=== PATIENT | female | born 1935 | race Caucasian/White ===

== ENCOUNTER 2016-12-20 12:32 | Observation (INO) | payer MEDICARE, OTHER ==
[2016-12-20] MEDS ORDERED: NS 0.9% 1000 ML* 1,000 ML IV ONE (13:10)
[2016-12-20 13:59] LABS: Hematocrit 38 % (35-47); Hemoglobin 12.6 g/dl (12.0-16.0); Mean Corpuscular HGB Conc 33 g/dl (31-36); Mean Corpuscular Hemoglobin 31 pg (27-31); Mean Corpuscular Volume 92 fL (80-97); Mean Platelet Volume 7 um3 (7.4-10.4); Red Cell Distribution Width 15 % (10.5-15); White Blood Count 4.2 10^3/ul (3.5-10.8)
--- NOTE | 2016-12-20 13:59 | RAD ---
HISTORY: Altered mental status COMPARISONS: July 03, 2016 VIEWS:1: Single frontal portable view of the chest at 1:54 PM FINDINGS: LINES AND TUBES: None. CARDIOMEDIASTINAL SILHOUETTE: The cardiomediastinal silhouette is normal for portable technique. PLEURA: The costophrenic angles are sharp. No pleural abnormalities are noted. LUNG PARENCHYMA: There is hyperinflation. ABDOMEN: The upper abdomen is clear. There is no subphrenic gas. BONES AND SOFT TISSUES: No bone or soft tissue abnormalities are noted. IMPRESSION: HYPERINFLATION. NO ACTIVE CARDIOPULMONARY DISEASE.
[2016-12-20 14:03] LABS: Urine Bacteria 1+ (Absent); Urine Bilirubin Negative (Negative); Urine Glucose Negative (Negative); Urine Nitrite Positive (Negative)
[2016-12-20 14:16] LABS: ALT 8 U/L (7-52); Alkaline Phosphatase 75 U/L (34-104); Blood Urea Nitrogen 22 mg/dL (6-24); CO2 Carbon Dioxide 28 mmol/L (22-32); Calcium 9.1 mg/dL (8.6-10.3); Chloride 105 mmol/L (101-111); Creatine Kinase 56 U/L (10-223); EGFR African American 152.3 (>60); EGFR Non-African American 118.4 (>60); Globulin 2.7 g/dL (2-4); Glucose 86 mg/dL (70-100); Sodium 138 mmol/L (133-145); Total Protein 6.7 g/dL (6.4-8.9)
[2016-12-20 14:19] LABS: AST 17 U/L (13-39); Anion Gap 5 mmol/L (2-11)
[2016-12-20 14:24] LABS: Acetaminophen < 15 mcg/mL; Salicylate < 2.50 mg/dL (<30)
--- NOTE | 2016-12-20 14:34 | CONS ---
CC: Dr. Parul Peter * CARDIOLOGY EVALUATION: DATE OF CONSULT: 12/20/16 REASON FOR EVALUATION: Weakness, dizziness. HISTORY OF PRESENT ILLNESS: This is an 81-year-old woman accompanied by her for stress testing. I saw her first on December 16 for evaluation of weakness and orthostatic lightheadedness. At that time, she had a low resting heart rate, intermittent right bundle and was thought that perhaps her symptoms were related to orthostatic lightheadedness and bradycardia. I asked her to cut her atenolol from 25 mg twice a day to 25 mg in the morning and 12.5 in the evening and she was supposed to follow up for evaluation with Holter, echo and stress testing to evaluate for structural heart disease. She also was found to have a soft systolic murmur 2/6 at the base and a soft holosystolic murmur at the apex. She arrived today for stress testing, was somewhat reluctant to proceed with the stress testing. She understands why it was being ordered and we explained the rationale for the testing and reminded her of her complaints. After further evaluation and trying to get a consent, she tried to sign the consent with her finger and she reported that she has been having some hallucinations. We brought the back in the room and reviewed all these symptoms. He said that she had hallucinations about a year ago, was evaluated and seemed to get better. She has also had recurrent chronic UTIs and has a pending evaluation with Dr. Hernandez. She denies fevers, but does say she has had some dysuria and it is difficult to quantitating the time. She denies orthopnea or chest pain and no syncope. She thinks she continues to have some mild orthostatic lightheadedness when getting up from sitting or standing. PHYSICAL EXAM: She is a well-developed, well-nourished female, appearing calm. Blood pressure 169/87, pulse 55, no significant JVD. Cardiac Exam: S1, S2 with 2/6 systolic ejection murmur at the base and 1-2/6 holosystolic murmur at the apex. Chest: Clear. Extremities: No edema. Abdomen: Bowel sounds present, nontender. DIAGNOSTIC STUDIES/LAB DATA: EKG sinus rhythm with incomplete right bundle branch block on the stress leads, possible lateral infarct similar to the previous EKG of December 16. I will encounter clockwise rotation similar to the previous EKG December 16. She knew the year, but did not know the month or the date. She knew where she was and she recognized me. IMPRESSION: My impression is that Ms. Sloan appears to have weakness, orthostatic lightheadedness, bradycardia and recent confusion, dysuria, disorientation of unclear etiology. I discussed this with her , the was not sure about the onset of her symptoms, but thought they are relatively recent although she has had waxing and waning levels of memory problems in the past. She also had recurrent UTIs. The nurses in the radiographer cardiac catheterization spoke to Dr. Peter who reported that this confusion was new compared to a baseline and to my recollection, this is new compared to my evaluation earlier this week. Therefore, we have recommended the followin. I suggest that she go to the emergency room for further evaluation especially in light of the dysuria and possibly infection. 2. We will cancel the stress test for now and consider repeat evaluation as an outpatient. 3. She was reminded of the need to cut her atenolol from 25 mg b.i.d. to 25 mg in the morning and 12.5 in the evening. Further recommendation will depend on her clinical course. The case was reviewed with Dr. Chahal in the emergency room. TIME SPENT: Over half of the 25 minutes spent with the patient and her and nurses and Dr. Chahal, was in evaluation of her medical presentation and coordination of care. [id number]/[facility] #: [id number] MTDD
--- NOTE | 2016-12-20 14:50 | RAD ---
HISTORY: Altered mental status COMPARISONS: April 02, 2016 TECHNIQUE: Multiple contiguous axial CT scans were obtained of the head without intravenous contrast. FINDINGS: HEMORRHAGE/INFARCT: There is no hemorrhage or acute infarct. MASSES/SHIFT: There is no mass or shift. EXTRA-AXIAL SPACES: There are no extra-axial fluid collections. SULCI AND VENTRICLES: The sulci and ventricles are normal in size and position for the patient's stated age. CEREBRUM: There are no focal parenchymal abnormalities. BRAINSTEM: There are no focal parenchymal abnormalities. CEREBELLUM: There are no focal parenchymal abnormalities. VESSELS: The vessels are grossly normal. PARANASAL SINUSES: The paranasal sinuses are clear. ORBITS: The orbits are unremarkable. BONES AND SOFT TISSUE: No bone or soft tissue abnormalities are noted. OTHER: None IMPRESSION: NO ACUTE INTRACRANIAL PATHOLOGY.
[2016-12-20 16:01] LABS: TSH (Thyroid Stimulating Horm) 0.47 mcIU/mL (0.34-5.60)
[2016-12-20] MEDS ORDERED: LORazepam TAB(*) 0.5 MG PO PRN (17:06)
[2016-12-20] MEDS ORDERED: NS 0.9% 1000 ML* 1,000 ML IV SCH (17:15)
--- NOTE | 2016-12-20 17:31 | ED ---
Donovan Brar Alfonso, scribed for Gauri Oliva MD on 12/20/16 at 1301 . Altered Mental Status - HPI Summary HPI Summary: This patient is an 81 year old female presenting [facility] accompanied by for altered mental status characterized as confusion since earlier today. She was at the cardiac lab earlier where she was scheduled for a stress test, and was referred to the ED. Reports "I was seeing and hearing things" such as other people and confusion. Denies any pain including CP, SOB, and fever. Sx aggravated and alleviated by nothing. Oriented to place, but not to time or person. PMHx of frequent UTIs. Denies recent falls and head trauma. - History Of Current Complaint Chief Complaint: EDAltMentalStatus Stated Complaint: AMS Hx Obtained From: Patient Timing: Constant, Lasting Hours - Earlier today at cardiac lab Severity Initially: Moderate Severity Currently: Moderate Character: Confusion Aggravating Factor(s): Nothing Alleviating Factor(s): Nothing Associated Signs And Symptoms: Negative: Recent Trauma Related History: Other: - frequent UTI's - Allergies/Home Medications Allergies/Adverse Reactions: Allergies Allergy/AdvReac Type Severity Reaction Status Date / Time Penicillins [PCN] Allergy Mild Hives Verified 10/21/14 13:58 Sulfa Drugs Allergy Mild Hives Verified 10/21/14 13:58 Doxycycline Allergy Unknown Unknown Verified 10/21/14 13:58 Reaction Details Ciprofloxacin [From Cipro] Allergy Itching Verified 10/21/14 13:58 Sulfamethoxazole Allergy Itching Verified 10/21/14 13:58 w/Trimethoprim [From Bactrim] Home Medications: Home Medications Acetaminophen [Acetaminophen Extra Stren] 500 mg PO Q4HR 12/20/16 [History Confirmed 12/20/16] PMH/Surg Hx/FS Hx/Imm Hx Previously Healthy: No Endocrine/Hematology History: Denies: Hx Diabetes, Hx Thyroid Disease Cardiovascular History: Reports: Hx Angina, Hx Hypertension Denies: Hx Coronary Artery Disease, Hx Hypercholesterolemia - borderline, Hx Myocardial Infarction, Hx Valvular Heart Disease Respiratory History: Denies: Hx Asthma, Hx Chronic Obstructive Pulmonary Disease (COPD) GI History: Reports: Hx Hiatal Hernia Denies: Hx Ulcer History: Reports: Hx Kidney Infection, Hx Kidney Stones - 2008, FOLLOWED BY DR DUFFY, Other Problems/Disorders - frequent UTI's Musculoskeletal History: 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 states no Psychiatric History: Reports: Hx Anxiety, Other Psychiatric Issues/Disorders - OF CHILD - Cancer History Hx Chemotherapy: No Hx Radiation Therapy: No - Surgical History Surgery Procedure, Year, and Place: Hysterectomy [place]. 1989 [facility] Right hip replacement [facility] [facility]. right knee repair [facility]. CATARACT RIGHT EYE 2012 [facility]. BLADDER SLING Hx Anesthesia Reactions: No - Immunization History Date of Tetanus Vaccine: unknown Infectious Disease History: No Infectious Disease History: Reports: Hx Shingles Denies: Hx Clostridium Difficile, Hx Hepatitis, Hx Human Immunodeficiency Virus (HIV), Hx Tuberculosis, Hx Known/Suspected VRE, Hx Known/Suspected VRSA, History Other Infectious Disease, Traveled Outside the in Last 30 Days - Family History Known Family History: Positive: Other - FHx breast cancer - Social History Alcohol Use: None Substance Use Type: Reports: None Hx Tobacco Use: No Smoking Status (MU): Never Smoked Tobacco Review of Systems Negative: Fever Negative: Chest Pain Negative: Shortness Of Breath Gastrointestinal: Negative Positive: frequency, urgency Negative: Arthralgia Neurological: Other - hallucinations, visual Psychological: Normal All Other Systems Reviewed And Are Negative: Yes Physical Exam - Summary Physical Exam Summary: Appearance: Ill-appearing, no pain distress, Well-nourished Eyes: Conjunctiva clear. Visual field intact by confrontation. ENT: Normal Neck: Supple Respiratory: Lungs clear, Normal breath sounds, no respiratory distress Cardio: RRR, No murmur, pulses normal, brisk capillary refill Abdomen: soft, nontender, negative splenomegaly, no bruits, non distended. Bowel sounds: present Musculoskeletal: Strength Intact, ROM intact. Moves all extremities. Neuro: Alert, muscle tone normal. No neurological focal deficits. Alert and oriented to place. Not oriented to time or person. CN II-XII intact Motor function 5/5 Sensations intact No hallucinations during my eval Psychological: Normal Skin: Normal Triage Information Reviewed: Yes Vital Signs On Initial Exam: Initial Vitals Temp Pulse Resp BP Pulse Ox 97.7 F 63 20 166/52 100 12/20/16 12:35 12/20/16 12:35 12/20/16 12:35 12/20/16 12:35 12/20/16 12:35 Vital Signs Reviewed: Yes - [place] Coma Scale Coma Scale Total: 15 Diagnostics - Vital Signs Vital Signs Temp Pulse Resp BP Pulse Ox 12/20/16 12:52 150/68 12/20/16 12:39 97.7 F 57 20 166/52 100 12/20/16 12:35 97.7 F 63 20 166/52 100 - Laboratory Lab Results: Lab Results 12/20/16 12/20/16 12/20/16 Range/Units 13:16 13:30 13:30 WBC 4.2 (3.5-10.8) 10^3/ul RBC 4.10 (4.0-5.4) 10^6/ul Hgb 12.6 (12.0-16.0) g/dl Hct 38 (35-47) % MCV 92 (80-97) fL MCH 31 (27-31) pg MCHC 33 (31-36) g/dl RDW 15 (10.5-15) % Plt Count 230 (150-450) 10^3/ul MPV 7 L (7.4-10.4) um3 Neut % (Auto) 63.3 (38-83) % Lymph % (Auto) 26.2 (25-47) % Harper % (Auto) 8.2 (1-9) % Eos % (Auto) 1.5 (0-6) % Baso % (Auto) 0.8 (0-2) % Absolute Neuts (auto) 2.7 (1.5-7.7) 10^3/ul Absolute Lymphs (auto) 1.1 (1.0-4.8) 10^3/ul Absolute Monos (auto) 0.3 (0-0.8) 10^3/ul Absolute Eos (auto) 0.1 (0-0.6) 10^3/ul Absolute Basos (auto) 0 (0-0.2) 10^3/ul Absolute Nucleated RBC 0 10^3/ul Nucleated RBC % 0.1 INR (Anticoag Therapy) (0.89-1.11) Sodium 138 (133-145) mmol/L Potassium 4.0 (3.5-5.0) mmol/L Chloride 105 (101-111) mmol/L Carbon Dioxide 28 (22-32) mmol/L Anion Gap 5 (2-11) mmol/L BUN 22 (6-24) mg/dL Creatinine 0.50 L (0.51-0.95) mg/dL Est GFR ( Amer) 152.3 (>60) Est GFR (Non-Af Amer) 118.4 (>60) BUN/Creatinine Ratio 44.0 H (8-20) Glucose 86 (70-100) mg/dL Lactic Acid (0.5-2.0) mmol/L Calcium 9.1 (8.6-10.3) mg/dL Magnesium 2.0 (1.9-2.7) mg/dL Total Bilirubin 0.80 (0.2-1.0) mg/dL AST 17 (13-39) U/L ALT 8 (7-52) U/L Alkaline Phosphatase 75 (34-104) U/L Ammonia (16-53) mol/L Total Creatine Kinase 56 (10-223) U/L Troponin I 0.00 (<0.04) ng/mL Total Protein 6.7 (6.4-8.9) g/dL Albumin 4.0 (3.2-5.2) g/dL Globulin 2.7 (2-4) g/dL Albumin/Globulin Ratio 1.5 (1-3) TSH 0.47 (0.34-5.60) mcIU/mL Urine Color Straw Urine Appearance Clear Urine pH 6.0 (5-9) Ur Specific [place] 1.006 L (1.010-1.030) Urine Protein Negative (Negative) Urine Ketones Negative (Negative) Urine Blood 1+ H (Negative) Urine Nitrate Positive H (Negative) Urine Bilirubin Negative (Negative) Urine Urobilinogen Negative (Negative) Ur Leukocyte Esterase 3+ H (Negative) Urine WBC (Auto) 2+(11-20/hpf) H (Absent) Urine RBC (Auto) Absent (Absent) Ur Squamous Epith Cells Present H (Absent) Urine Bacteria 1+ H (Absent) Urine Glucose Negative (Negative) Salicylates < 2.50 (<30) mg/dL Acetaminophen < 15 mcg/mL 12/20/16 12/20/16 12/20/16 Range/Units 13:30 13:30 13:30 WBC (3.5-10.8) 10^3/ul RBC (4.0-5.4) 10^6/ul Hgb (12.0-16.0) g/dl Hct (35-47) % MCV (80-97) fL MCH (27-31) pg MCHC (31-36) g/dl RDW (10.5-15) % Plt Count (150-450) 10^3/ul MPV (7.4-10.4) um3 Neut % (Auto) (38-83) % Lymph % (Auto) (25-47) % Harper % (Auto) (1-9) % Eos % (Auto) (0-6) % Baso % (Auto) (0-2) % Absolute Neuts (auto) (1.5-7.7) 10^3/ul Absolute Lymphs (auto) (1.0-4.8) 10^3/ul Absolute Monos (auto) (0-0.8) 10^3/ul Absolute Eos (auto) (0-0.6) 10^3/ul Absolute Basos (auto) (0-0.2) 10^3/ul Absolute Nucleated RBC 10^3/ul Nucleated RBC % INR (Anticoag Therapy) 0.96 (0.89-1.11) Sodium (133-145) mmol/L Potassium (3.5-5.0) mmol/L Chloride (101-111) mmol/L Carbon Dioxide (22-32) mmol/L Anion Gap (2-11) mmol/L BUN (6-24) mg/dL Creatinine (0.51-0.95) mg/dL Est GFR ( Amer) (>60) Est GFR (Non-Af Amer) (>60) BUN/Creatinine Ratio (8-20) Glucose (70-100) mg/dL Lactic Acid 1.0 (0.5-2.0) mmol/L Calcium (8.6-10.3) mg/dL Magnesium (1.9-2.7) mg/dL Total Bilirubin (0.2-1.0) mg/dL AST (13-39) U/L ALT (7-52) U/L Alkaline Phosphatase (34-104) U/L Ammonia 26 (16-53) mol/L Total Creatine Kinase (10-223) U/L Troponin I (<0.04) ng/mL Total Protein (6.4-8.9) g/dL Albumin (3.2-5.2) g/dL Globulin (2-4) g/dL Albumin/Globulin Ratio (1-3) TSH (0.34-5.60) mcIU/mL Urine Color Urine Appearance Urine pH (5-9) Ur Specific Troy (1.010-1.030) Urine Protein (Negative) Urine Ketones (Negative) Urine Blood (Negative) Urine Nitrate (Negative) Urine Bilirubin (Negative) Urine Urobilinogen (Negative) Ur Leukocyte Esterase (Negative) Urine WBC (Auto) (Absent) Urine RBC (Auto) (Absent) Ur Squamous Epith Cells (Absent) Urine Bacteria (Absent) Urine Glucose (Negative) Salicylates (<30) mg/dL Acetaminophen mcg/mL Result Diagrams: 12/20/16 13:30 12/20/16 13:30 Lab Statement: Any lab studies that have been ordered have been reviewed, and results considered in the medical decision making process. - Radiology CXR Xray Interpretation: No Acute Changes - HYPERINFLATION. NO ACTIVE CARDIOPULMONARY DISEASE. Radiology Interpretation Completed By: Radiologist - CT CT Brain CT Interpretation: No Acute Changes - NO ACUTE INTRACRANIAL PATHOLOGY CT Interpretation Completed By: Radiologist - EKG 1300 Cardiac Rate: NL EKG Rhythm: Atrial Fibrillation - BPM 52 EKG Interpretation: Normal IV conduction time. QTC normal. Left axis -39 EKG Comparison: No Significant Change - 04/04/16 Re-Evaluation - Re-Evaluation 1602 Re-Evaluation Time: 16:02 Change: Unchanged Comment: Spoke with patient about admission. She understands and agrees. Altered Mental Statu Course/Dx - Course Assessment/Plan: Patient is an 81 year old who presents to the ED for AMS, characterized as confusion and auditory and visual hallucinations. She denies any pain including CP, SOB, and fever. PMHx of frequent UTIs. Denies recent falls or head trauma. CT brain, CXR both reveal no acute findings. EKG reveals A -Fib unchanged from prior EKG. UA reveals color: straw, appearance: clear, pH; 6.0, specific gravity: 1.006, Blood: 1+, nitrate: positive, leukocyte esterase: 3+, WBC: 2+, Squamous Epit: Present, Bacteria: 1+. Patient's altered mental status believed secondary to UTI. Discussed care of patient with Dr. Eddy ( hospitalist) who accepted the patient for admission. She will be admitted for observation of her hallucinations and altered mental status and treatment of the UTI. She will still need the cardiac evaluation that was scheduled for today. Pt given ceftriaxone in the ED. Allergies noted and patient medications reviewed this visit. - Diagnoses Differential Diagnosis/HQI/PQRI: CVA, Hypoglycemia, Hypoxia, Medication Reaction , Metabolic Disorder, Sepsis, Other - UTI Discharge Diagnoses: Altered mental status, unspecified, UTI (urinary tract infection) - Provider Notifications Discussed Care Of Patient With: Mary Carmen Eddy - admit obs Time Discussed With Above Provider: 14:34 Instructed by Provider To: Admit As Observation - Critical Care Time Critical Care Time: 30-74 min Discharge - Discharge Plan Condition: Stable Disposition: ADMITTED TO [facility] The documentation as recorded by the Donovan franco Alfonso accurately reflects the service I personally performed and the decisions made by Pj dubois Barbara J, MD.
[2016-12-20] MEDS ORDERED: cefTRIAXone VIAL(*) 1,000 MG in NS 0.9% 50 ML* 50 ML IVPB SCH (18:00)
[2016-12-20] MEDS ORDERED: Atenolol TAB* 25 MG PO SCH (21:00)
[2016-12-20] MEDS: Heparin VIAL(*) 5000 UNITS/ML VIAL (FIVE THOUSAND) SUBCUT SCH (21:10)
--- NOTE | 2016-12-20 21:14 | HP ---
CC: Dr. Parul Peter* [facility] MEDICINE HISTORY AND PHYSICAL: DATE OF ADMISSION: 12/20/16 PRIMARY CARE PHYSICIAN: Dr. Parul Peter. ATTENDING PHYSICIAN: Dr. Rodney Huffman *(dictation provided by Nohelia Tesfaye NP ). CHIEF COMPLAINT: Confusion and dysuria. HISTORY OF PRESENT ILLNESS: Ms. Sloan is an 81-year-old female with a past medical history of recurrent UTIs and hypertension who presented to the hospital today from Dr. Murcia's office. The patient was scheduled to have a stress test today there out of concern for ongoing episodes of weakness and orthostatic lightheadedness. The patient reports that she has had these symptoms of dizziness and weakness for about a month. She also reports having symptoms of dysuria over the past few days. She had been started on cephalexin daily for suppressive therapy by Dr. Hernandez who she follows with for her recurrent UTIs. Looking at the record, the patient has had more than 20 urinary tract infections documented since 2013. She does endorse dysuria today , but denies frequency. She has had no fever. She has no abdominal or flank pain. She has no history of kidney stones. While at Dr. Murcia's office today in preparation for the stress test, the patient tried to sign the consent form with her finger and then stated that she had been having some hallucinations. In speaking with her and her , it was apparent that the patient was more confused recently. This combined with the dysuria prompted Dr. Murcia to send the patient to the emergency room. In the emergency room, Ms. Sloan had a urinalysis that had positive nitrite and 3+ leuk esterase with 1% bacteria. Her vitals were stable. She was afebrile. She has no leukocytosis. PAST MEDICAL HISTORY: 1. Recurrent urinary tract infections. 2. Hypertension. PAST SURGICAL HISTORY: 1. History of bladder sling. 2. History of hysterectomy. 3. History of lap cholecystectomy. MEDICATIONS: 1. Atenolol 25 mg p.o. qAM and 12.5 mg p.o. qPM 2. Lorazepam 0.5 mg p.o. t.i.d. p.r.n. 3. PreserVision 1 cap p.o. b.i.d. 4. Cephalexin 500 mg q.p.m. 5. Tylenol 500 mg p.o. q.4 hours p.r.n. 6. Artificial Tears 1 drop both eyes t.i.d. 7. Bacitracin 1 application as needed. 8. Calcium carbonate with vitamin D 1 tab p.o. bid. 9. Erythromycin 5 g both eyes at bedtime. ALLERGIES: To PENICILLIN, SULFA, DOXYCYCLINE, CIPROFLOXACIN and BACTRIM. FAMILY HISTORY: The patient reports both her parents related to heart problems. SOCIAL HISTORY: No reported alcohol, tobacco or drug use. The patient lives with her who is the healthcare proxy. REVIEW OF SYSTEMS: A 14-point review of systems was completed on Ms. Sloan and all those not mentioned above were negative. PHYSICAL EXAMINATION GENERAL: Ms. Sloan is sitting in the bed. She is in no acute distress. VITAL SIGNS: Blood pressure 143/83, heart rate 85, O2 saturation 100% on room air, temperature 97.5, respiratory rate 18. LUNGS: Clear to auscultation bilaterally. No accessory muscle use and good aeration. HEART: S1, S2. No murmur, rub or gallop and regular. ABDOMEN: Soft, nontender with bowel sounds x4. EXTREMITIES: No cyanosis or edema. NEUROLOGIC: She is alert. She is oriented x3. She does not appear to be confused at this time. She is not hallucinating. She answers all of her questions appropriately and follows commands. She moves all extremities equally. There is no facial asymmetry or focal weakness. Extraocular muscles are intact. SKIN: Intact. DATA: WBC 4.2, hemoglobin 12.6, hematocrit 38, platelet count 230. INR is 0.96. Sodium 138, potassium 4.0, chloride 105, sodium bicarbonate 28, BUN 22, creatinine 0.50, glucose 86. Urine shows positive nitrite, 3+ leuk esterase and positive bacteria. CT brain shows no acute intracranial pathology. Chest x -ray shows hyperinflation and no active cardiopulmonary disease. IMPRESSION: Ms. Sloan is an 81-year-old female with a past medical history of recurrent urinary tract infections followed by Dr. Hernandez who presents to the hospital today from Dr. Murcia's office prior to an intended stress test with concern for dysuria and confusion. In the emergency room, she has been found to have a positive urinalysis. Our plans are for observation in the hospital for the followin. Urinary tract infection: The patient shows no evidence of sepsis. She was apparently confused at Dr. Murcia's office and at home, but seems appropriate here at this point. Her vital signs are stable. She has no leukocytosis or fever. She has no flank pain, back pain, abdominal pain. We will treat for urinary tract infection with ceftriaxone based on the culture results and her multiple allergies. She will have gentle fluids overnight at 75 mL per hour and we will adjust antibiotics based on the urine culture. 2. Hypertension. Continue atenolol. 3. Anxiety. Continue lorazepam. 4. DVT prophylaxis with heparin subcu. 5. Disposition to the medical floor. TIME SPENT: Approximately 60 minutes were spent on the admission of this patient, more than half the time spent with the patient at the bedside reviewing the events leading up to this hospitalization, performing the physical examination, and reviewing the plan of care. NOHELIA TESFAYE NP [id number]/[facility] #: [id number] [place]
[2016-12-20] MEDS: Preservision Areds(NF) CAP PO SCH (21:19)
[2016-12-21] MEDS: Heparin VIAL(*) 5000 UNITS/ML VIAL (FIVE THOUSAND) SUBCUT SCH (06:15)
[2016-12-21] MEDS ORDERED: Acetaminophen TAB* 325 MG PO PRN (08:33)
[2016-12-21] MEDS: Preservision Areds(NF) CAP PO SCH (08:47)
[2016-12-21] MEDS ORDERED: Atenolol TAB* 25 MG PO SCH ×2 (09:00→18:00)
[2016-12-21 11:44] VITALS: BP 139/75
--- NOTE | 2016-12-21 12:20 | PN ---
Subjective Date of Service: 12/21/16 Interval History: Patient seen and examined at bedside. Pt states that she feels well today. Denies fever, chills, shortness of breath, chest discomfort, or N/V/D. Pt reports dysuria. Upon further discussion with Pt and family it is unclear if she is taking her medications properly. Pt's daughter will assist with setting up a pill box and go toher follow-up appointments. Family History: Unchanged from Admission Social History: Unchanged from Admission Past Medical History: Unchanged from Admission Objective Active Medications: Acetaminophen (Tylenol Tab*) 650 mg PO Q6H PRN Reason: PAIN Atenolol (Tenormin Tab*) 25 mg PO QAM THERESA Atenolol (Tenormin Tab*) 12.5 mg PO QPM THERESA Heparin Sodium (Porcine) (Heparin Vial(*)) 5,000 units SUBCUT Q8HR THERESA Ceftriaxone Sodium 1,000 mg/ (Sodium Chloride) 50 mls @ 200 mls/hr IVPB Q24H THERESA Sodium Chloride (Ns 0.9% 1000 Ml*) 1,000 mls @ 75 mls/hr IV PER RATE THERESA Lorazepam (Ativan Tab(*)) 0.5 mg PO TID PRNReason: ANXIETY Multivitamins/Minerals (Preservision Areds(Multivitamins/Mineral)(Nf)) 1 cap PO BID THERESA Vital Signs 12/20/16 12/20/16 12/20/16 15:00 15:30 16:00 Temperature Pulse Rate 60 76 73 Respiratory 12 16 15 Rate Blood Pressure 145/64 144/65 (mmHg) O2 Sat by Pulse 99 97 97 Oximetry 12/20/16 12/20/16 12/20/16 16:27 17:00 17:38 Temperature 98.3 F 97.5 F Pulse Rate 86 74 Respiratory 12 Rate Blood Pressure 160/63 (mmHg) O2 Sat by Pulse 95 100 Oximetry 12/20/16 12/20/16 12/21/16 17:39 23:26 03:56 Temperature 97.5 F 97.8 F 98.1 F Pulse Rate 85 65 60 Respiratory 19 16 18 Rate Blood Pressure 143/83 114/65 121/64 (mmHg) O2 Sat by Pulse 100 96 96 Oximetry 12/21/16 12/21/16 07:32 11:17 Temperature 97.7 F 98.3 F Pulse Rate 65 60 Respiratory 17 17 Rate Blood Pressure 139/61 139/75 (mmHg) O2 Sat by Pulse 97 97 Oximetry Oxygen Devices in Use Now: None Appearance: NAD, sitting up in bed Eyes: No Scleral Icterus Ears/Nose/Mouth/Throat: Mucous Membranes Moist Respiratory: Symmetrical Chest Expansion and Respiratory Effort, Clear to Auscultation Cardiovascular: NL Sounds; No Murmurs; No JVD, RRR Abdominal: NL Sounds; No Tenderness; No Distention Extremities: No Edema Skin: No Rash or Ulcers Neurological: Alert and Oriented x 3, NL Muscle Strength and Tone Lines/Tubes/Other Access: Clean, Dry and Intact Peripheral IV - site benign Nutrition: Taking PO's Result Diagrams: 12/20/16 13:30 12/20/16 13:30 Additional Lab and Data: Assess/Plan/Problems-Billing Assessment: Ms. Sloan is an 81 yo female with PMH significant for recurrent UTIs and HTN who presented to the emergency room from [facility] with concerns for confusion. - Patient Problems (1) UTI (urinary tract infection) Comment: - Afebrile and no leukocytosis - Pt with history of recurrent UTIs - Unclear if Pt is taking daily dose of Keflex - Will switch to cefdinir for discharge as urine culture and sensitivity are still pending (2) HTN (hypertension) Code(s): I10 - ESSENTIAL (PRIMARY) HYPERTENSION SNOMED Code(s): 40452111 Comment: - Continue home atenolol (3) Anxiety Code(s): F41.9 - ANXIETY DISORDER, UNSPECIFIED SNOMED Code(s): 96293701 Comment: - Continue lorazepam PRN (4) DVT prophylaxis Code(s): FHT8112 - SNOMED Code(s): 425761351 (5) Full code status Code(s): Z78.9 - OTHER SPECIFIED HEALTH STATUS SNOMED Code(s): 247358277 Status and Disposition: OBV. Stable for discharge to home.
--- NOTE | 2016-12-22 05:02 | DS ---
CC: Dr. Parul Peter * DISCHARGE SUMMARY: DATE OF ADMISSION: 12/20/16 DATE OF DISCHARGE: 12/21/16 ATTENDING PHYSICIAN: Dr. Rodney Huffman * (dictated by Trev Doyle NP). PRIMARY CARE PROVIDER: Dr. Parul Peter. PRIMARY DIAGNOSES: 1. Urinary tract infection. 2. Altered mental status, resolved. SECONDARY DIAGNOSES: 1. Recurrent urinary tract infections. 2. Hypertension. STUDIES WHILE IN THE HOSPITAL: 1. Brain CT on 12/20/16. Radiologist's impression: No acute intracranial pathology. 2. Chest CT on 12/20/16. Radiologist's impression: Hyperinflation. No active cardiopulmonary disease. DISCHARGE MEDICATIONS: New home medications: Cefdinir 300 mg oral twice daily for 4 days. Continued home medications: 1. Lorazepam 0.5 mg oral 3 times daily as needed for anxiety. 2. Atenolol 25 mg oral in the morning, 12.5 mg oral in the evening. 3. Calcium carbonate-vitamin D 1 tablet oral twice daily. 4. Artificial tears 1 drop to both eyes 3 times daily. 5. PreserVision AREDS 1 capsule oral twice daily. 6. Erythromycin 5 to both eyes daily at bedtime. 7. Bacitracin apply as needed. 8. Acetaminophen 500 mg oral every 4 hours as needed for pain. Medications on hold: Keflex while taking cefdinir, then the patient should resume her daily prophylactic Keflex. HISTORY OF PRESENT ILLNESS/HOSPITAL COURSE: Ms. Sloan is an 81-year-old female with past medical history significant for recurrent UTIs and hypertension , who presented to the emergency room from Dr. Murcia's office, where she had been scheduled for an outpatient stress test with concerns of altered mental status. The patient was initially set up for a stress test as she has been complaining of weakness and orthostatic lightheadedness. On looking back at the patient's medical record, she has had more than 20 urinary tract infections documented since 2013, most of these with E. coli. The patient has followed with Dr. Hernandez with Urology. Upon presentation to the emergency room, the patient endorses dysuria, but denies any urinary frequency or other urinary symptoms such as abdominal pain or flank pain. The patient had a urinalysis in the emergency room showing nitrites, 3+ leukocyte esterase, and 1+ bacteria. She was noted to be afebrile and have no leukocytosis. The hospitalists were asked to evaluate the patient. The patient was then monitored overnight on observation. She received 1 dose of ceftriaxone. She remained afebrile with no leukocytosis. The patient's altered mental status has resolved; I suspect this is secondary to her urinary tract infection. Due to the patient's multiple allergies and by looking at her history of sensitivities, the patient was switched to cefdinir as her urine culture and sensitivity are still pending. It was felt that the patient could be discharged to home today. Ms. Sloan is stable for discharge to home today. Vital signs are as follows : Temperature 98.3, heart rate 60, respiratory rate 17, O2 sat 97% on room air, blood pressure 139/75. DISCHARGE PLAN: Ms. Sloan will be discharged to home. ACTIVITY: As tolerated. DIET: Regular heart-healthy diet. DISCHARGE INSTRUCTIONS: As far as the patient's urinary tract infection, she should be continued on cefdinir 300 mg oral twice daily for 4 days to complete a 5- day course of antibiotics. The patient already has an appointment with Dr. Hernandez on December 24. I have encouraged her and her family to follow up with this appointment. The patient will then resume her prophylactic Keflex daily dosing after she has completed her course of cefdinir. As far as the patient's hypertension, she will be continued on her home medications. The patient has been asked to return to the emergency room for any chest pain, shortness of breath. She has been encouraged to contact Dr. Murcia's office to set up with outpatient followup appointment to have another cardiac stress test. The patient should follow up with her primary care provider, Dr. Parul Peter, and her family has been asked to call on Friday morning to set up a followup appointment. This is a summarized report of a complex medical history and hospital stay. For further details, please see the entire medical record. TIME SPENT: Time for this discharge was approximately 50 minutes, greater than half the time was spent [id number] with the patient and family discussing discharge plans and instructions. CONDITION ON DISCHARGE: Stable. TREV RIDDLE, CHILDCARE WORKER [id number]/[facility] #: [id number] [place]
== END 2016-12-21 13:45 | disposition home or self-care (01) ==
LOC: ED 12:32 → MED 14:59
PROVIDERS: ADMIT Internal Medicine; ATTEND Internal Medicine
DX: N39.0 Urinary tract infection, site not specified (principal); R41.82 Altered mental status, unspecified; I10 Essential (primary) hypertension; F41.9 Anxiety disorder, unspecified; I49.3 Ventricular premature depolarization; I48.91 Unspecified atrial fibrillation; Z79.899 Other long term (current) drug therapy; Z88.0 Allergy status to penicillin; Z88.1 Allergy status to other antibiotic agents; Z88.2 Allergy status to sulfonamides
CPT/HCPCS: 36415; 70450; 71010; 80053; 80329; 81003; 81015; 82140; 82550; 83605; 83735; 84443; 84484; 85025; 85610; 87040; 87077; 87086; 87186; 93005; 96361; 96372; 96374; 99291; A9270-GY; G0378; G0480; J0696; J1644

== ENCOUNTER 2017-07-15 18:38 | Inpatient (IN) | payer MEDICARE, OTHER ==
--- NOTE | 2017-07-15 19:49 | RAD ---
Indication: Fall with head injury. Comparison: February 07, 2017 CT. Technique: Noncontrast CT vertex of skull through foramen magnum. Report: Mild prominence of the cerebral sulci reflecting involutional change. Unremarkable ventricles and basal cisterns. Negative for stevenson matter white matter obscuration, intra or extra-axial hemorrhage, or mass effect. Unremarkable visualized orbital contents. Indolent thickening of the inner table of the frontal, temporal, and parietal bones. No suspicious calvarial or skull base lesions evident. Negative for fracture. Clear visualized paranasal sinuses and mastoid air spaces. Negative for scalp hematoma. IMPRESSION: No CT evidence for traumatic brain injury or acute intracranial process.
--- NOTE | 2017-07-15 20:09 | ED ---
Lower Extremity - HPI Summary HPI Summary: 82F presents with right leg pain. She states she had a mechanical fall. She was walking at home and tripped and fell and landed with her right leg under her. She hit her head. She denies any LOC. She had a total hip replacement she believes that it was done here 10 years ago. She denies any chest pain, SOB , or abdominal pain. She normally uses a cane at home. She denies any neck pain , back pain, or upper extremity pain. pain is worst with movement. She took one Tylenol prior to arrival. She has history of dementia, HTN. She is not on blood thinners. - History of Current Complaint Chief Complaint: EDHipPelvisInjury Stated Complaint: FALL/RT LOWER EXTREMITY PAIN Time Seen by Provider: 07/15/17 18:59 Pain Intensity: 7 - Allergies/Home Medications Allergies/Adverse Reactions: Allergies Allergy/AdvReac Type Severity Reaction Status Date / Time Penicillins [PCN] Allergy Mild Hives Verified 10/21/14 13:58 Sulfa Drugs Allergy Mild Hives Verified 10/21/14 13:58 Doxycycline Allergy Unknown Unknown Verified 10/21/14 13:58 Reaction Details Ciprofloxacin [From Cipro] Allergy Itching Verified 10/21/14 13:58 Cyclobenzaprine Allergy Unknown Verified 01/16/17 14:05 Reaction Details Losartan Allergy Unknown Verified 01/16/17 14:05 Reaction Details Moxifloxacin [From Avelox] Allergy Unknown Verified 01/16/17 13:57 Reaction Details Sulfamethoxazole Allergy Itching Verified 10/21/14 13:58 w/Trimethoprim [From Bactrim] PMH/Surg Hx/FS Hx/Imm Hx Endocrine/Hematology History: Denies: Hx Diabetes, Hx Thyroid Disease Cardiovascular History: Reports: Hx Angina, Hx Hypertension, Other Cardiovascular Problems/Disorders Denies: Hx Coronary Artery Disease, Hx Hypercholesterolemia - borderline, Hx Myocardial Infarction, Hx Valvular Heart Disease Respiratory History: Denies: Hx Asthma, Hx Chronic Obstructive Pulmonary Disease (COPD) GI History: Reports: Hx Hiatal Hernia Denies: Hx Ulcer History: Reports: Hx Kidney Infection, Hx Kidney Stones - 2008, FOLLOWED BY DR DUFFY, Other Problems/Disorders - frequent UTI's Musculoskeletal History: 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 states no Psychiatric History: Reports: Hx Anxiety, Other Psychiatric Issues/Disorders - OF CHILD - Cancer History Hx Chemotherapy: No Hx Radiation Therapy: No - Surgical History Surgery Procedure, Year, and Place: Hysterectomy [place]. 1989 TOTAL Right hip replacement [facility]. 1994 [facility]olecystectomy [facility]. right knee repair [facility]. CATARACT RIGHT EYE 2012 [facility]. [facility] [place] Hx Anesthesia Reactions: No - Immunization History Date of Tetanus Vaccine: unknown Infectious Disease History: No Infectious Disease History: Reports: Hx Shingles Denies: Hx Clostridium Difficile, Hx Hepatitis, Hx Human Immunodeficiency Virus (HIV), Hx Tuberculosis, Hx Known/Suspected VRE, Hx Known/Suspected VRSA, History Other Infectious Disease, Traveled Outside the [place] in Last 30 Days - Family History Known Family History: Positive: Other - FHx breast cancer - Social History Alcohol Use: None Substance Use Type: Reports: None Hx Tobacco Use: No Smoking Status (MU): Never Smoked Tobacco Review of Systems Negative: Fever Negative: Chest Pain Negative: Shortness Of Breath Positive: Other - right knee pain Positive: Headache All Other Systems Reviewed And Are Negative: Yes Physical Exam Triage Information Reviewed: Yes Vital Signs On Initial Exam: Initial Vitals Temp Pulse Resp BP Pulse Ox 97.3 F 66 16 116/77 98 07/15/17 18:40 07/15/17 18:40 07/15/17 18:40 07/15/17 18:40 07/15/17 18:40 Completion Of Physical Exam Limited Due To: Dementia Appearance: Positive: Well-Appearing Skin: Positive: Warm, Dry Head/Face: Positive: Normal Head/Face Inspection Eyes: Positive: Normal, EOMI, NATHANAEL, Conjunctiva Clear ENT: Positive: Normal ENT inspection, Pharynx normal, TMs normal Respiratory/Lung Sounds: Positive: Clear to Auscultation, Breath Sounds Present Cardiovascular: Positive: Normal, RRR Abdomen Description: Positive: Nontender, Soft Bowel Sounds: Positive: Present Musculoskeletal: Positive: Limited @ - right leg, Other - good pulses, capillary refill<2 secs, sensation grossly intact. tenderess over right femur Neurological: Positive: Sensory/Motor Intact, CN Intact II-III - [place] Coma Scale Best Eye Response: 4 - Spontaneous Best Motor Response: 6 - Obeys Commands Best Verbal Response: 5 - Oriented Diagnostics - Vital Signs Vital Signs Temp Pulse Resp BP Pulse Ox 07/15/17 18:40 97.3 F 66 16 116/77 98 - Laboratory Result Diagrams: 07/15/17 20:00 07/15/17 20:00 Lab Statement: Any lab studies that have been ordered have been reviewed, and results considered in the medical decision making process. - Radiology femur Xray Interpretation: Positive (See Comments) - IMPRESSION: Distal to the femoral stem component of the RIGHT hip prosthesis there is a displaced spiral diaphyseal fracture of the femur as described. Radiology Interpretation Completed By: Radiologist - CT brain CT Interpretation: No Acute Changes CT Interpretation Completed By: Radiologist - EKG No standard instances Cardiac Rate: NL EKG Rhythm: Sinus Rhythm EKG Interpretation: sinus rhythm no significant change previous EKG Comparison: No Significant Change Lower Extremity Course/Dx - Course Course Of Treatment: 82F presents with right leg pain. She states she had a mechanical fall. She was walking at home and tripped and fell and landed with her right leg under her. She hit her head. She denies any LOC. She had a total hip replacement she believes that it was done here 10 years ago. She denies any chest pain, SOB, or abdominal pain. She normally uses a cane at home. She denies any neck pain, back pain, or upper extremity pain. She has history of dementia, HTN. She is not on blood thinners. on exam tenderness right femur. neurovascular intact. CT head normal. xray femur shows femur fracture. spoke with dr melara who will see in am. dr carcamo agrees to admit. - Diagnoses Differential Diagnosis/HQI/PQRI: Positive: Contusion, Fracture (Closed), Strain Provider Diagnoses: Right femoral fracture, Fall, Head injury - Physician Notifications Discussed Care Of Patient With: dr melara Time Discussed With Above Provider: 21:10 - place in knee immbolizer or traction and admit for possible surgery tomorrow Discharge - Discharge Plan Condition: Stable Disposition: ADMITTED TO [facility]
[2017-07-15 20:16] LABS: ABS Basophils 0 10^3/ul (0-0.2); ABS Eosinophils 0 10^3/ul (0-0.6); ABS Lymphocytes 0.6 10^3/ul (1.0-4.8); ABS Monocytes 0.5 10^3/ul (0-0.8); ABS Neutrophils 7.2 10^3/ul (1.5-7.7); ABS Nucleated RBC 0 10^3/ul; Eosinophil % 0.4 % (0-6); Hematocrit 30 % (35-47); Lymphocyte % 6.9 % (25-47); Mean Corpuscular HGB Conc 34 g/dl (31-36); Mean Corpuscular Hemoglobin 31 pg (27-31); Mean Corpuscular Volume 93 fL (80-97); Mean Platelet Volume 7 um3 (7.4-10.4); Nucleated Red Blood Cells % 0; Platelet Count 221 10^3/ul (150-450); Red Blood Count 3.23 10^6/ul (4.0-5.4); Red Cell Distribution Width 15 % (10.5-15); White Blood Count 8.4 10^3/ul (3.5-10.8)
[2017-07-15 20:26] LABS: INR 0.95 (0.77-1.02)
[2017-07-15 20:30] LABS: EGFR Non-African American 123.8 (>60)
--- NOTE | 2017-07-15 20:49 | RAD ---
Indication: RIGHT hip pain post fall. Comparison: June 09, 2017 Technique: AP pelvis and AP and frog-leg lateral views RIGHT hip. AP and crosstable lateral views of the RIGHT femur. Report: Bone density appears decreased throughout. RIGHT total hip prosthesis is normally located. No evidence for prosthesis loosening. Distal to the femoral stem component of the prosthesis there is a spiral diaphyseal fracture of the RIGHT femur with cephalocaudal override of the fracture fragments and 1 bone width posterior displacement. Associated soft tissue swelling. Diffuse skeletal muscle atrophy. Normal articular alignment at the knee. IMPRESSION: Distal to the femoral stem component of the RIGHT hip prosthesis there is a displaced spiral diaphyseal fracture of the femur as described.
[2017-07-15] MEDS ORDERED: Acetaminophen TAB* 325 MG PO ONE (20:51)
--- NOTE | 2017-07-15 20:53 | RAD ---
Indication: Fall; RIGHT femur fracture. Comparison: December 20, 2016 Technique: Supine dual-energy AP chest. Report: Minimal linear atelectasis at the LEFT lower lung zone. The lungs and pleural spaces are otherwise clear. Upper normal heart size. Unremarkable central pulmonary vasculature and mediastinal contours. Gallbladder fossa level surgical clips. No visualized thoracic fractures. IMPRESSION: No evidence for significant acute intrathoracic disease.
[2017-07-15] MEDS ORDERED: Ondansetron INJ* 2 MG/ML VIAL IV PRN (21:42)
[2017-07-15] MEDS ORDERED: CMCS: Melatonin (NF) 3 MG TAB PO PRN (21:42)
[2017-07-15] MEDS: fentaNYL* 50 MCG/ML 2 ML VIAL (100 MCG VIAL) IV SLOW PU PRN (22:21)
[2017-07-15 22:59] LABS: Urine Appearance Cloudy; Urine Blood 3+ (Negative); Urine Color Amber; Urine Ketones Trace (Negative); Urine Protein 1+(30 mg/dL) (Negative); Urine Specific Gravity 1.019 (1.010-1.030); Urine Urobilinogen Positive (Negative)
[2017-07-16] MEDS: NS 0.9% 1000 ML* 1,000 ML IV SCH ×2 (00:47→15:30)
[2017-07-16] MEDS: fentaNYL* 50 MCG/ML 2 ML VIAL (100 MCG VIAL) IV SLOW PU PRN ×2 (01:26→13:47)
--- NOTE | 2017-07-16 01:59 | HP ---
H&P (Free Text) History and Physical: PCP: Earl Peter MD Date/Time: 07/15/2017 2130 CC: HTN HPI: Mrs Sloan is an 82YO severely demented female who was at home sitting in the kitchen while her watched television in the living room. He then heard her cry out and found her on the floor having fallen. There was no known head injury or loss of consciousness. She complained of severe R thigh pain and so EMS was summoned. Mrs Sloan is pleasantly confused and unable to contribute to this history which was obtained from family present. She is unable to report current status information beyond RLE pain. PMedHx severe dementia HTN anxiety frequent UTIs Ambulatory Orders Nursing to reconcile. LORazepam TAB(*) [Ativan 0.5 MG TAB (*)] 0.5 - 1 mg PO TID PRN MDD 1.5 mg Artificial Tear Solution [Genteal Tears Moderate 0.1-0.3 %] 1 drop BOTH EYES TID 12/19/16 Atenolol TAB* [Tenormin TAB* 25 MG] 12.5 mg PO DAILY 12/19/16 Bacitracin OPHTH.OINT* 1 applic BOTH EYES BEDTIME 12/19/16 Calcium Carbonate-Vitamin D W/ [Caltrate 600+D Plus [place] 600-800 mg-Unit] 1 tab PO BID 12/19/16 Erythromycin (Ophth) [Ilotycin] 5 gm BOTH EYES BEDTIME 12/19/16 Multiple Vitamins W/ Minerals [Preservision Areds 2 + Mu] 1 cap PO BID 12/19/16 Acetaminophen [Acetaminophen Extra Stren] 500 mg PO Q4HR PRN #0 12/21/16 Cephalexin CAP* [Keflex 500 CAP*] 1 tab PO DAILY 01/16/17 Allergies Penicillins [PCN] Allergy (Mild, Verified 10/21/14 13:58) Hives Sulfa Drugs Allergy (Mild, Verified 10/21/14 13:58) Hives Doxycycline Allergy (Unknown, Verified 10/21/14 13:58) Unknown Reaction Details Ciprofloxacin [From Cipro] Allergy (Verified 10/21/14 13:58) Itching Cyclobenzaprine Allergy (Verified 01/16/17 14:05) Unknown Reaction Details Losartan Allergy (Verified 01/16/17 14:05) Unknown Reaction Details Moxifloxacin [From Avelox] Allergy (Verified 01/16/17 13:57) Unknown Reaction Details Sulfamethoxazole w/Trimethoprim [From Bactrim] Allergy (Verified 10/21/14 13:58) Itching PSurgHx cholecystectomy hysterectomy bladder suspension SocHx: no tobacco, alcohol, or recreational drugs; lives with her ; full code status FamHx: positive for CAD ROS: as above, otherwise reviewed and all were negative vitals: Vital Signs Temp 36.7 C 07/15/17 23:49 Pulse 78 07/15/17 23:49 Resp 16 07/16/17 01:26 BP 99/57 07/15/17 23:49 Pulse Ox 96 07/15/17 23:49 Intake & Output 07/15/17 07/15/17 07/16/17 11:59 23:59 11:59 Weight 58.513 kg 54.159 kg Constitutional: NAD, normally developed, well-nourished elderly white female HEENM: atraumatic; sclera/conjunctiva: anicteric/clear; hearing: clinically intact; oropharynx: clear, mucosa moist Neck: soft tissue: non-tender; thyroid: normal Pulmonary: clear to auscultation bilaterally, good aeration, no accessory muscle use CV: RR/RR, normal S1S2, no carotid bruit, no jugular venous distention, 2+ B DP/ PT, no edema Abdominal: soft, non-distended, non-tender, no rebound/guarding/rigidity, normoactive bowel sounds, no hepatosplenomegaly or masses, no costovertebral angle tenderness Musculoskeletal: general: RLE shortened w/ mid-thigh swelling & tenderness, RLE capillary refill ~2s, R foot pink warm & dry; gait: currently non-ambulatory Integumental: normal appearance and texture of exposed skin Psychiatric orientation: AA & oriented only to person affect: varies from calm to pain to crying mood: varies as above eye contact: poor content: unreliable memory: absent responses: mostly incoherent insight: poor Testing: Lab Results 07/15/17 07/15/17 07/15/17 Range/Units 20:00 20:00 20:00 WBC 8.4 (3.5-10.8) 10^3/ul RBC 3.23 L (4.0-5.4) 10^6/ul Hgb 10.0 L (12.0-16.0) g/dl Hct 30 L (35-47) % MCV 93 (80-97) fL MCH 31 (27-31) pg MCHC 34 (31-36) g/dl RDW 15 (10.5-15) % Plt Count 221 (150-450) 10^3/ul MPV 7 L (7.4-10.4) um3 Neut % (Auto) 86.2 H (38-83) % Lymph % (Auto) 6.9 L (25-47) % Bryan % (Auto) 6.0 (1-9) % Eos % (Auto) 0.4 (0-6) % Baso % (Auto) 0.5 (0-2) % Absolute Neuts (auto) 7.2 (1.5-7.7) 10^3/ul Absolute Lymphs (auto) 0.6 L (1.0-4.8) 10^3/ul Absolute Monos (auto) 0.5 (0-0.8) 10^3/ul Absolute Eos (auto) 0 (0-0.6) 10^3/ul Absolute Basos (auto) 0 (0-0.2) 10^3/ul Absolute Nucleated RBC 0 10^3/ul Nucleated RBC % 0 INR (Anticoag Therapy) 0.95 (0.77-1.02) APTT 27.9 (26.0-36.3) seconds Sodium 138 (133-145) mmol/L Potassium 3.3 L (3.5-5.0) mmol/L Chloride 101 (101-111) mmol/L Carbon Dioxide 30 (22-32) mmol/L Anion Gap 7 (2-11) mmol/L BUN 32 H (6-24) mg/dL Creatinine 0.48 L (0.51-0.95) mg/dL Est GFR ( Amer) 159.2 (>60) Est GFR (Non-Af Amer) 123.8 (>60) BUN/Creatinine Ratio 66.7 H (8-20) Glucose 138 H (70-100) mg/dL Lactic Acid (0.5-2.0) mmol/L Calcium 9.0 (8.6-10.3) mg/dL Total Bilirubin 0.70 (0.2-1.0) mg/dL AST 18 (13-39) U/L ALT 16 (7-52) U/L Alkaline Phosphatase 93 (34-104) U/L Total Protein 6.1 L (6.4-8.9) g/dL Albumin 3.5 (3.2-5.2) g/dL Globulin 2.6 (2-4) g/dL Albumin/Globulin Ratio 1.3 (1-3) Urine Color Urine Appearance Urine pH (5-9) Ur Specific [place] (1.010-1.030) Urine Protein (Negative) Urine Ketones (Negative) Urine Blood (Negative) Urine Nitrate (Negative) Urine Bilirubin (Negative) Urine Urobilinogen (Negative) Ur Leukocyte Esterase (Negative) Urine WBC (Auto) (Absent) Urine RBC (Auto) (Absent) Ur Squamous Epith Cells (Absent) Urine Bacteria (Absent) Urine Glucose (Negative) Blood Type Antibody Screen 07/15/17 07/15/17 07/15/17 Range/Units 20:00 20:00 22:25 WBC (3.5-10.8) 10^3/ul RBC (4.0-5.4) 10^6/ul Hgb (12.0-16.0) g/dl Hct (35-47) % MCV (80-97) fL MCH (27-31) pg MCHC (31-36) g/dl RDW (10.5-15) % Plt Count (150-450) 10^3/ul MPV (7.4-10.4) um3 Neut % (Auto) (38-83) % Lymph % (Auto) (25-47) % Bryan % (Auto) (1-9) % Eos % (Auto) (0-6) % Baso % (Auto) (0-2) % Absolute Neuts (auto) (1.5-7.7) 10^3/ul Absolute Lymphs (auto) (1.0-4.8) 10^3/ul Absolute Monos (auto) (0-0.8) 10^3/ul Absolute Eos (auto) (0-0.6) 10^3/ul Absolute Basos (auto) (0-0.2) 10^3/ul Absolute Nucleated RBC 10^3/ul Nucleated RBC % INR (Anticoag Therapy) (0.77-1.02) APTT (26.0-36.3) seconds Sodium (133-145) mmol/L Potassium (3.5-5.0) mmol/L Chloride (101-111) mmol/L Carbon Dioxide (22-32) mmol/L Anion Gap (2-11) mmol/L BUN (6-24) mg/dL Creatinine (0.51-0.95) mg/dL Est GFR ( Amer) (>60) Est GFR (Non-Af Amer) (>60) BUN/Creatinine Ratio (8-20) Glucose (70-100) mg/dL Lactic Acid 0.9 (0.5-2.0) mmol/L Calcium (8.6-10.3) mg/dL Total Bilirubin (0.2-1.0) mg/dL AST (13-39) U/L ALT (7-52) U/L Alkaline Phosphatase (34-104) U/L Total Protein (6.4-8.9) g/dL Albumin (3.2-5.2) g/dL Globulin (2-4) g/dL Albumin/Globulin Ratio (1-3) Urine Color [place] Urine Appearance Cloudy Urine pH 5.0 (5-9) Ur Specific [place] 1.019 (1.010-1.030) Urine Protein 1+(30 mg/dl) H (Negative) Urine Ketones Trace H (Negative) Urine Blood 3+ H (Negative) Urine Nitrate Negative (Negative) Urine Bilirubin Negative (Negative) Urine Urobilinogen Positive H (Negative) Ur Leukocyte Esterase 3+ H (Negative) Urine WBC (Auto) 3+(>20/hpf) H (Absent) Urine RBC (Auto) Absent (Absent) Ur Squamous Epith Cells Present H (Absent) Urine Bacteria 3+ H (Absent) Urine Glucose Negative (Negative) Blood Type O Negative Antibody Screen Negative ECG, personally reviewed: sinus RBBB rate 88, no ischemia CXR, personally reviewed: IMPRESSION: No evidence for significant acute intrathoracic disease. CT brain WO, personally reviewed: IMPRESSION: No CT evidence for traumatic brain injury or acute intracranial process. XRY hip/pelvis, personally reviewed: IMPRESSION: Distal to the femoral stem component of the RIGHT hip prosthesis there is a displaced spiral diaphyseal fracture of the femur as described. XRY R femur, personally reviewed: IMPRESSION: Distal to the femoral stem component of the RIGHT hip prosthesis there is a displaced spiral diaphyseal fracture of the femur as described. Impression: 82F HX advanced dementia presents with R dominick-prosthetic femur FX 2nd fall DIAGNOSIS & PLAN Primary R dominick-prosthetic femur FX : pain control : NPO after midnight : pappas to gravity : Cameron Salgado MD orthopedic surgery consulted by ED, will evaluate in AM : supportive care Secondary severe dementia : no acute issues HTN : review meds once reconciled anxiety : review meds once reconciled Admission Rational: inpatient for surgical management of R dominick-prosthetic femur FX DVTp: SCDs & heparin SQ Code Status: full HCP:
[2017-07-16 06:33] LABS: ABS Basophils 0 10^3/ul (0-0.2); ABS Eosinophils 0 10^3/ul (0-0.6); ABS Lymphocytes 1.3 10^3/ul (1.0-4.8); ABS Monocytes 0.8 10^3/ul (0-0.8); ABS Neutrophils 4.6 10^3/ul (1.5-7.7); ABS Nucleated RBC 0 10^3/ul; Eosinophil % 0.6 % (0-6); Hematocrit 25 % (35-47); Hemoglobin 8.6 g/dl (12.0-16.0); Mean Corpuscular HGB Conc 35 g/dl (31-36); Mean Corpuscular Hemoglobin 32 pg (27-31); Mean Corpuscular Volume 92 fL (80-97); Mean Platelet Volume 7 um3 (7.4-10.4); Nucleated Red Blood Cells % 0.1; Platelet Count 212 10^3/ul (150-450); Red Blood Count 2.67 10^6/ul (4.0-5.4); Red Cell Distribution Width 15 % (10.5-15); White Blood Count 6.7 10^3/ul (3.5-10.8)
[2017-07-16 06:50] LABS: EGFR Non-African American 140.6 (>60)
[2017-07-16] MEDS: Docusate CAP* 100 MG PO SCH ×3 (08:18→22:02)
[2017-07-16] MEDS: Pantoprazole IV* 40 MG IV SCH (08:18)
--- NOTE | 2017-07-16 10:00 | CONS ---
CC: Dr. Parul Peter CONSULTATION REPORT: DATE OF CONSULT: 07/16/17 PRIMARY CARE PHYSICIAN: Dr. Parul Peter. CHIEF COMPLAINT: Right leg pain. HISTORY OF PRESENT ILLNESS: Briefly, Ele Sloan is an 82-year-old demented female, who was sitting at home in the kitchen with her watching TV, then she was found down. She had severe right thigh pain and obvious deformity. She came to the ER in excruciating pain. She underwent imaging. She has previous history of right total hip replacement. She sustained a distal femur fracture. She underwent a head CT as well as chest x-ray for evaluation. She is baseline demented. She lives at home with her . PAST MEDICAL HISTORY: Significant for severe dementia, hypertension, anxiety, frequent UTIs. PAST SURGICAL HISTORY: Right total hip replacement, cholecystectomy, hysterectomy, and bladder suspension. MEDICATIONS: 1. Lorazepam. 2. Artificial tears. 3. Atenolol. 4. Bacitracin. 5. Calcium. 6. Erythromycin. 7. Multivitamin. 8. Acetaminophen. 9. Keflex. ALLERGIES: To PENICILLIN, SULFA DRUGS, DOXY, CIPRO, CYCLOBENZAPRINE, VERSED, LOSARTAN, MOXIFLOXACIN, BACTRIM. FAMILY HISTORY: Significant for coronary artery disease. SOCIAL HISTORY: She denies tobacco, no alcohol, no recreational drugs. She lives with her . She is a full code status. REVIEW OF SYSTEMS: A 14-point review of systems reviewed with the patient. The patient is unable to communicate and is in obvious discomfort in the right leg; otherwise, she is sleeping but arousable. Remainder of review of systems is negative with respect to fevers or shortness of breath. PHYSICAL EXAM: She is in no acute distress. She is well-developed, well- nourished. She is alert. EOMI. Chest is clear to auscultation. Heart has regular rate and rhythm. Abdomen is soft and nontender. Examination of the right leg demonstrates obvious deformity of the right thigh. The skin is intact. She has 2+ PT pulse distally. She responds to sensation about the first dorsal webspace, medial, lateral, and dorsal plantar foot. She is able to flex her toes and her ankle. DIAGNOSTIC STUDIES/LAB DATA: White count of 6.7, hematocrit of 25, platelet count of 212. INR of 0.95, PTT of 27.9. Sodium 141, potassium 3.0, chloride 105, carbon dioxide 31, BUN is 32, creatine is 0.43, calcium is 8.4. X-rays reviewed that demonstrates a right distal femur fracture encompassing the mid to distal third, does not incorporate the inferior aspect of the stem. This appears to be an oblique fracture with no obvious butterfly fragments. Chest x-ray is negative. ASSESSMENT AND PLAN: She has a right distal femur fracture encompassing the mid to distal third shaft of the femur, does not involve her previous right total hip replacement. At this point, we do not have traction available, so therefore she is placed in a knee immobilizer. She will be optimized by Medicine. N.p.o. Today. We will plan for open reduction internal fixation of distal femur. She will likely need a type and cross as her hematocrit is 25. We will take care of this today. Risks and benefits were discussed with the patient. She is not aware. We will discuss it with her healthcare proxy. [id number]/[facility] #: [id number] CORDELL
[2017-07-16] MEDS ORDERED: KCL 20 MEQ/100 ML IVPREMIX* 20 MEQ/100 ML BAG IV SCH (12:00)
[2017-07-16] MEDS ORDERED: Potassium Chloride IV* 60 MEQ in NS 0.9% 500 ML* 500 ML IVPB ONE (13:00)
[2017-07-16] MEDS: Acetaminophen TAB* 325 MG PO PRN (14:42)
[2017-07-16] MEDS ORDERED: Midazolam* 1 MG/ML 10 ML VIAL (10 MG) ONE (15:45)
[2017-07-16] MEDS ORDERED: KETAMINE HCL* 50 MG/ML 10 ML VIAL ONE (15:45)
[2017-07-16] MEDS ORDERED: fentaNYL* 50 MCG/ML 2 ML VIAL (100 MCG VIAL) ONE (15:45)
[2017-07-16] MEDS ORDERED: cefTRIAXone(*) 1 GM in NS 0.9% 50 ML* 50 ML IVPB ONE (16:00)
[2017-07-16] MEDS ORDERED: Morphine PF AMP (0.5MG/ML)* 5 MG/10 ML AMP ONE (17:03)
--- NOTE | 2017-07-16 17:18 | PN ---
Subjective Date of Service: 07/16/17 Interval History: NO complaints, alert to name, confused to place and time. Denies chest pain, denies shortness of breath, denies fever or chills, denies N/V/D or abd pain. Denies urinary frequency or urgency. Family History: Unchanged from Admission Social History: Unchanged from Admission Past Medical History: Unchanged from Admission Objective Active Medications: Acetaminophen (Tylenol Tab*) 650 mg PO Q6H PRN PRN Reason: FEVER/PAIN Last Admin: 07/16/17 14:42 Dose: 650 mg Docusate Sodium (Colace Cap*) 200 mg PO BID [facility] Last Admin: 07/16/17 08:23 Dose: Not Given Fentanyl Citrate (Fentanyl*) 25 mcg IV SLOW PU Q2H PRN PRN Reason: PAIN Last Admin: 07/16/17 13:47 Dose: 25 mcg Heparin Sodium (Porcine) (Heparin Vial(*)) 5,000 units SUBCUT ED ONCE ONE Stop: 07/16/17 23:01 Sodium Chloride (Ns 0.9% 1000 Ml*) 1,000 mls @ 75 mls/hr IV PER RATE [facility] Last Admin: 07/16/17 15:30 Dose: 75 mls/hr Potassium Chloride 60 meq/ (Sodium Chloride) 530 mls @ 88.333 mls/hr IVPB ONCE ONE Stop: 07/16/17 18:59 Last Admin: 07/16/17 12:52 Dose: 88.333 mls/hr Ceftriaxone Sodium 1 gm/ (Sodium Chloride) 50 mls @ 200 mls/hr IVPB Q24H [facility] Melatonin (Melatonin (Nf)) 3 mg PO BEDTIME PRN; Protocol PRN Reason: Sleep Ondansetron HCl (Zofran Inj*) 4 mg IV Q6H PRN PRN Reason: NAUSEA Last Admin: 07/15/17 22:21 Dose: 4 mg Pantoprazole Sodium (Protonix Iv*) 40 mg IV DAILY [facility] Last Admin: 07/16/17 08:18 Dose: 40 mg Vital Signs - 8 hr 07/16/17 13:47 Respiratory 17 Rate Oxygen Devices in Use Now: None Appearance: alert ,pleasent , appears comfortable Eyes: No Scleral Icterus Ears/Nose/Mouth/Throat: Mucous Membranes Moist Neck: NL Appearance and Movements; NL JVP, Trachea Midline Respiratory: Symmetrical Chest Expansion and Respiratory Effort, Clear to Auscultation, - - diminished in the based bilat Cardiovascular: NL Sounds; No Murmurs; No JVD, RRR, No Edema Extremities: No Clubbing, Cyanosis, - - right thigh with edema, knee immobilizer intact to right leg, pedal pulses +2 bilat, left leg warm to touch Skin: No Rash or Ulcers Neurological: - - alert, oriented to self. confused to place and time Lines/Tubes/Other Access: Clean, Dry and Intact Reddy - patent Nutrition: - - NPO for surgery Result Diagrams: 07/16/17 19:28 07/16/17 06:04 Assess/Plan/Problems-Billing Assessment: This is 82 y.o female with an underlying history og dementia, a-fib, hypertension and anxiety that present to the emergency room after a fall. Patient c/o right leg pain. Spiral fracture to the right femur was confirmed. - Patient Problems (1) Femur fracture, right Current Visit: Yes Status: Acute Code(s): S72.91XA - UNSP FRACTURE OF RIGHT FEMUR, INIT FOR CLOS FX SNOMED Code(s): 53341953 Comment: management per orthopedics Patient is acceptable risk for surgery today Surgical risk index is 4% revised cardiac risk asseessment is 0.4% will continue to trend H/H post-op Patient has echo 12/2016 which showed left ventricle cavity normal normal global wall motion visual EF 60-65% no dominga stenosis mild pulmonic reguritation mildly-moderate dilated ascending aorta Patient also had a nuclear stress on 01/2017- impression low risk PT/OT as per ortho (2) History of atrial fibrillation Current Visit: Yes Status: Acute Code(s): Z86.79 - PERSONAL HISTORY OF OTHER DISEASES OF THE CIRCULATORY SYSTEM SNOMED Code(s): 615115625 Comment: current in regular rhythum will place on telemetry post-op (3) UTI (urinary tract infection) Current Visit: No Status: Acute Comment: -low grade fever, no leukocytosis - Pt with history of recurrent UTIs - will place on ceftriaxone daily -urine culture is pending (4) HTN (hypertension) Current Visit: No Status: Acute Code(s): I10 - ESSENTIAL (PRIMARY) HYPERTENSION SNOMED Code(s): 02502768 Comment: Stable - not surrently taking medications at home monitor blood pressure (5) Anxiety Current Visit: No Status: Acute Code(s): F41.9 - ANXIETY DISORDER, UNSPECIFIED SNOMED Code(s): 33554251 Comment: - Continue lorazepam PRN (6) Anemia Current Visit: Yes Status: Acute Code(s): D64.9 - ANEMIA, UNSPECIFIED SNOMED Code(s): 359879256 Comment: New-suspect this is d/t her right femur fracture only modifiable factor for surgery, could be partial d/t dilution, does not currently meet criteria for transfusion. acceptable canidate for surgery Will trend H/H and transfuse if needed (7) Dementia Current Visit: Yes Status: Acute Code(s): F03.90 - UNSPECIFIED DEMENTIA WITHOUT BEHAVIORAL DISTURBANCE SNOMED Code(s): 39699285 Comment: supportive care (8) DVT prophylaxis Current Visit: No Status: Acute Code(s): UWO9653 - SNOMED Code(s): 915409344 Comment: per Orthopedics (9) DNR (do not resuscitate) Current Visit: Yes Status: Acute Comment: will maintain MOLST completed Status and Disposition: inpatient- will need rehab post surgery
[2017-07-16 19:34] LABS: Hematocrit 23 % (35-47); Hemoglobin 7.8 g/dl (12.0-16.0)
[2017-07-16] MEDS ORDERED: Heparin VIAL(*) 5000 UNITS/ML VIAL (FIVE THOUSAND) SUBCUT ONE (23:00)
[2017-07-17] MEDS: fentaNYL* 50 MCG/ML 2 ML VIAL (100 MCG VIAL) IV SLOW PU PRN ×2 (06:19→20:33)
[2017-07-17 07:31] LABS: ABS Basophils 0 10^3/ul (0-0.2); ABS Eosinophils 0.1 10^3/ul (0-0.6); ABS Lymphocytes 1.1 10^3/ul (1.0-4.8); ABS Monocytes 0.6 10^3/ul (0-0.8); ABS Neutrophils 3.8 10^3/ul (1.5-7.7); ABS Nucleated RBC 0 10^3/ul; Eosinophil % 2.4 % (0-6); Hematocrit 26 % (35-47); Hemoglobin 8.9 g/dl (12.0-16.0); Lymphocyte % 18.8 % (25-47); Mean Corpuscular HGB Conc 34 g/dl (31-36); Mean Corpuscular Hemoglobin 32 pg (27-31); Mean Corpuscular Volume 92 fL (80-97); Mean Platelet Volume 7 um3 (7.4-10.4); Nucleated Red Blood Cells % 0; Platelet Count 205 10^3/ul (150-450); Red Blood Count 2.82 10^6/ul (4.0-5.4); Red Cell Distribution Width 15 % (10.5-15); White Blood Count 5.6 10^3/ul (3.5-10.8)
[2017-07-17] MEDS ORDERED: Bupivacaine 0.5% SDV PF* 10-30ML VIAL ONE ×2 (07:37→12:14)
[2017-07-17 07:42] LABS: EGFR Non-African American 178.3 (>60)
[2017-07-17] MEDS: Docusate CAP* 100 MG PO SCH ×2 (07:57→20:42)
[2017-07-17] MEDS ORDERED: Magnesium Sulfate 2 GM IV* 2 GM/50 ML BAG IVPB ONE (08:07)
[2017-07-17] MEDS: Pantoprazole IV* 40 MG IV SCH (08:24)
[2017-07-17] MEDS: NS 0.9% 1000 ML* 1,000 ML IV SCH ×2 (08:24→19:23)
--- NOTE | 2017-07-17 11:20 | PN ---
Progress Note - Progress Note Date of Service: 07/17/17 Note: H and P update. Pt seen and examined in bed. Alert. Quiet. Immobilizer in place. No acute events. Spasms from pain as well as tremor at baseline. Temp Pulse Resp BP Pulse Ox 97.9 F 71 16 124/57 94 07/17/17 07:40 07/17/17 07:40 07/17/17 09:12 07/17/17 07:40 07/17/17 07:40 NAD. RLE with deformity. Skin intact. able to flex/ext toes and dorsiflex/ plantarflex ankle. 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
[2017-07-17] MEDS ORDERED: Bupivacaine-MPF SPINAL* 7.5 MG/2 ML AMP ONE (12:13)
[2017-07-17] MEDS ORDERED: cefTRIAXone(*) 1 GM in NS 0.9% 50 ML* 50 ML IVPB ONE (13:00)
[2017-07-17] MEDS ORDERED: Naloxone* 0.4 MG/ML 1 ML VIAL IV PRN (13:14)
[2017-07-17] MEDS ORDERED: fentaNYL* 50 MCG/ML 2 ML VIAL (100 MCG VIAL) IV PRN (13:14)
[2017-07-17] MEDS ORDERED: Bupivacaine 0.25% SDV* 30 ML ONE (15:27)
[2017-07-17] MEDS ORDERED: cefTRIAXone(*) 1 GM in NS 0.9% 50 ML* 50 ML IVPB SCH (16:00)
--- NOTE | 2017-07-17 16:06 | PN ---
Subjective Date of Service: 07/17/17 Interval History: c/o right leg pain, Denies shortness of breath, chest pain , abd pain. Denies N /V/D Pleasantly confused, oriented to place and name. Will Have surgery this AM as procedure was cancelled yesterday. Family History: Unchanged from Admission Social History: Unchanged from Admission Past Medical History: Unchanged from Admission Objective Active Medications: Acetaminophen (Tylenol Tab*) 650 mg PO Q6H PRN PRN Reason: FEVER/PAIN Last Admin: 07/16/17 14:42 Dose: 650 mg Docusate Sodium (Colace Cap*) 200 mg PO BID [facility] Last Admin: 07/17/17 07:57 Dose: Not Given Fentanyl Citrate (Fentanyl*) 25 mcg IV SLOW PU Q2H PRN PRN Reason: PAIN Last Admin: 07/17/17 06:19 Dose: 25 mcg Fentanyl Citrate (Fentanyl*) 25 mcg IV Q5M PRN PRN Reason: PAIN - MODERATE Stop: 07/17/17 20:00 Sodium Chloride (Ns 0.9% 1000 Ml*) 1,000 mls @ 75 mls/hr IV PER RATE [facility] Last Admin: 07/17/17 08:24 Dose: 75 mls/hr Ceftriaxone Sodium 1 gm/ (Sodium Chloride) 50 mls @ 200 mls/hr IVPB Q24H [facility] Melatonin (Melatonin (Nf)) 3 mg PO BEDTIME PRN; Protocol PRN Reason: Sleep Naloxone HCl (Narcan*) 0.08 mg IV Q2M PRN PRN Reason: severe induced resp depression Stop: 07/18/17 05:14 Ondansetron HCl (Zofran Inj*) 4 mg IV Q6H PRN PRN Reason: NAUSEA Last Admin: 07/15/17 22:21 Dose: 4 mg Pantoprazole Sodium (Protonix Iv*) 40 mg IV DAILY [facility] Last Admin: 07/17/17 08:24 Dose: 40 mg Vital Signs - 8 hr 07/17/17 09:12 Respiratory 16 Rate Oxygen Devices in Use Now: Nasal Cannula Appearance: alert, appears comfortable resting in bed, confused to time. Eyes: No Scleral Icterus Ears/Nose/Mouth/Throat: Clear Oropharnyx, Mucous Membranes Moist Neck: NL Appearance and Movements; NL JVP, Trachea Midline Respiratory: Symmetrical Chest Expansion and Respiratory Effort, Clear to Auscultation Cardiovascular: NL Sounds; No Murmurs; No JVD, RRR, No Edema Abdominal: NL Sounds; No Tenderness; No Distention Extremities: No Clubbing, Cyanosis - Right leg with swelling, warm , DP +2 bilat , right knee immoblizer intact Skin: No Rash or Ulcers Neurological: NL Sensation - confused to time Result Diagrams: 07/17/17 06:36 07/17/17 06:36 Microbiology and Other Data: Microbiology 07/15/17 22:25 Urine Culture - Preliminary Urine Escherichia Coli Assess/Plan/Problems-Billing Assessment: This is 82 y.o female with an underlying history og dementia, a-fib, hypertension and anxiety that present to the emergency room after a fall. Patient c/o right leg pain. Spiral fracture to the right femur was confirmed. Surgery today, Received 1 unit PRBC last PM H/H improved , will continue to trends post surgery. - Patient Problems (1) Femur fracture, right Current Visit: Yes Status: Acute Code(s): S72.91XA - UNSP FRACTURE OF RIGHT FEMUR, INIT FOR CLOS FX SNOMED Code(s): 07844771 Comment: management per orthopedics Patient is acceptable risk for surgery today Surgical risk index is 4% revised cardiac risk asseessment is 0.4% will continue to trend H/H post-op Patient has echo 12/2016 which showed left ventricle cavity normal normal global wall motion visual EF 60-65% no dominga stenosis mild pulmonic reguritation mildly-moderate dilated ascending aorta Patient also had a nuclear stress on 01/2017- impression low risk PT/OT as per ortho (2) History of atrial fibrillation Current Visit: Yes Status: Acute Code(s): Z86.79 - PERSONAL HISTORY OF OTHER DISEASES OF THE CIRCULATORY SYSTEM SNOMED Code(s): 407545262 Comment: current in regular rhythum will place on telemetry post-op (3) UTI (urinary tract infection) Current Visit: No Status: Acute Comment: -low grade fever, no leukocytosis - Pt with history of recurrent UTIs - will place on ceftriaxone daily -urine culture is pending (4) HTN (hypertension) Current Visit: No Status: Acute Code(s): I10 - ESSENTIAL (PRIMARY) HYPERTENSION SNOMED Code(s): 46276382 Comment: Stable - not surrently taking medications at home monitor blood pressure (5) Anxiety Current Visit: No Status: Acute Code(s): F41.9 - ANXIETY DISORDER, UNSPECIFIED SNOMED Code(s): 45126461 Comment: - Continue lorazepam PRN (6) Anemia Current Visit: Yes Status: Acute Code(s): D64.9 - ANEMIA, UNSPECIFIED SNOMED Code(s): 655801549 Comment: New-suspect this is d/t her right femur fracture only modifiable factor for surgery, could be partial d/t dilution, does not currently meet criteria for transfusion. acceptable canidate for surgery Will trend H/H and transfused 1 unit of PRBC last PM H/H was improved today prior to surgery. (7) Dementia Current Visit: Yes Status: Acute Code(s): F03.90 - UNSPECIFIED DEMENTIA WITHOUT BEHAVIORAL DISTURBANCE SNOMED Code(s): 94963369 Comment: supportive care call buckner in reach (8) DVT prophylaxis Current Visit: No Status: Acute Code(s): OXZ8969 - SNOMED Code(s): 673555893 Comment: per Orthopedics (9) DNR (do not resuscitate) Current Visit: Yes Status: Acute Comment: will maintain MOLST completed (10) Hypomagnesemia Current Visit: Yes Status: Acute Code(s): E83.42 - HYPOMAGNESEMIA SNOMED Code(s): 540408646 Comment: Magnesium 2 grams IV given Will repeat Magnesium level in the AM Status and Disposition: inpatient- will need rehab post surgery
--- NOTE | 2017-07-17 16:10 | RAD ---
Indication: Distal femur fracture. Fluoroscopic services provided for referring physician. 105.3 seconds of fluoroscopy time was used. 9 spot images demonstrates internal fixation of a distal femur fracture. IMPRESSION: Fluoroscopic services provided for referring physician.
[2017-07-17 17:00] LABS: Hematocrit 26 % (35-47); Hemoglobin 8.8 g/dl (12.0-16.0)
[2017-07-17] MEDS ORDERED: traMADol TAB* 50 MG PO PRN (20:42)
[2017-07-17] MEDS: Acetaminophen TAB* 325 MG PO PRN (22:16)
[2017-07-17] MEDS: Heparin VIAL(*) 5000 UNITS/ML VIAL (FIVE THOUSAND) SUBCUT SCH (22:17)
[2017-07-18] MEDS ORDERED: Haloperidol INJ IV/IM* 5 MG/ML AMP IV ONE (01:25)
[2017-07-18] MEDS: Heparin VIAL(*) 5000 UNITS/ML VIAL (FIVE THOUSAND) SUBCUT SCH ×3 (06:18→23:16)
[2017-07-18 07:15] LABS: EGFR Non-African American 126.9 (>60)
[2017-07-18] MEDS ORDERED: Magnesium Sulfate 2 GM IV* 2 GM/50 ML BAG IVPB ONE (07:25)
[2017-07-18 07:32] LABS: Hematocrit 18 % (35-47)
[2017-07-18 07:42] LABS: Mean Corpuscular HGB Conc 35 g/dl (31-36); Mean Corpuscular Hemoglobin 32 pg (27-31); Mean Corpuscular Volume 90 fL (80-97); Mean Platelet Volume 7 um3 (7.4-10.4); Platelet Count 205 10^3/ul (150-450); Red Blood Count 1.99 10^6/ul (4.0-5.4); Red Cell Distribution Width 15 % (10.5-15); White Blood Count 6.9 10^3/ul (3.5-10.8)
[2017-07-18 08:01] LABS: Hemoglobin 6.2 g/dl (12.0-16.0)
[2017-07-18] MEDS: Docusate CAP* 100 MG PO SCH ×3 (08:12→23:12)
[2017-07-18] MEDS: Acetaminophen TAB* 325 MG PO PRN (08:12)
[2017-07-18] MEDS: Pantoprazole IV* 40 MG IV SCH (08:12)
--- NOTE | 2017-07-18 11:49 | PN ---
Progress Note - Progress Note Date of Service: 07/18/17 SOAP: Subjective: [Pt was seen today sitting up in bed. She states that she is not experiencing much pain in the right leg. She states that she is unhappy about the whole situation. She denies any SOB, chest pain, coughing, numbness or tingling. ] Objective: [General: Pt is awake, oriented to place. She is mildly distressed shedding tears as she is unhappy about being in the hospital. MSK: RLE: knee immobilize is on when pt is seen. Dressing is c/d/i. She is able to df/pf without pain. PT pulse is palpable and 2+. Full sensation distally. Vital Signs Temp 99.3 F 07/18/17 01:50 Pulse 113 07/18/17 07:18 Resp 16 07/18/17 07:18 BP 123/43 07/18/17 07:18 Pulse Ox 93 07/18/17 07:18 Intake & Output 07/17/17 07/18/17 07/18/17 18:59 06:59 18:59 Intake Total 210 860 Output Total 775 250 Balance -565 610 Intake: IV Fluids 50 860 NS (0.9%) 860 ROCEPHIN 1 GRAM 50 Oral 160 0 Output: Reddy 775 250 Assessment: [POD 1 ORIF Right distal femur ] Plan: [H and H is 6.2 and 18. Hospitalists have ordered 1 unit of blood. Continue with Knee immobilizer, NWB RLE Continue with current pain management. Continue with Heparin q8hrs for DVT prophylaxis ]
--- NOTE | 2017-07-18 12:57 | PN ---
Subjective Date of Service: 07/18/17 Interval History: Patient Denies chest pain, denies shortness of breath, Denies n/V/D. c/o leg pain, seems to have increased confusion today. Family History: Unchanged from Admission Social History: Unchanged from Admission Past Medical History: Unchanged from Admission Objective Active Medications: Acetaminophen (Tylenol Tab*) 650 mg PO Q6H PRN PRN Reason: FEVER/PAIN Last Admin: 07/18/17 08:12 Dose: 650 mg Docusate Sodium (Colace Cap*) 200 mg PO BID [facility] Last Admin: 07/18/17 08:40 Dose: Not Given Heparin Sodium (Porcine) (Heparin Vial(*)) 5,000 units SUBCUT Q8HR [facility] Last Admin: 07/18/17 06:18 Dose: 5,000 units Sodium Chloride (Ns 0.9% 1000 Ml*) 1,000 mls @ 75 mls/hr IV PER RATE [facility] Last Admin: 07/17/17 19:23 Dose: 75 mls/hr Ceftriaxone Sodium 1 gm/ (Sodium Chloride) 50 mls @ 200 mls/hr IVPB 1200 [facility] Melatonin (Melatonin (Nf)) 3 mg PO BEDTIME PRN; Protocol PRN Reason: Sleep Ondansetron HCl (Zofran Inj*) 4 mg IV Q6H PRN PRN Reason: NAUSEA Last Admin: 07/15/17 22:21 Dose: 4 mg Pantoprazole Sodium (Protonix Iv*) 40 mg IV DAILY [facility] Last Admin: 07/18/17 08:12 Dose: 40 mg Tramadol HCl (Ultram*) 50 mg PO Q6H PRN PRN Reason: PAIN - SEVERE Last Admin: 07/17/17 22:17 Dose: 50 mg Vital Signs - 8 hr 07/18/17 07/18/17 07:18 08:00 Pulse Rate 113 Respiratory 16 20 Rate Blood Pressure 123/43 (mmHg) O2 Sat by Pulse 93 Oximetry Oxygen Devices in Use Now: None Appearance: confused, appears comfortable, awake and alert Eyes: No Scleral Icterus, PERRLA Ears/Nose/Mouth/Throat: Clear Oropharnyx, Mucous Membranes Moist Neck: NL Appearance and Movements; NL JVP, Trachea Midline Respiratory: Symmetrical Chest Expansion and Respiratory Effort, Clear to Auscultation - diminished at the bases Cardiovascular: NL Sounds; No Murmurs; No JVD, RRR, No Edema Abdominal: NL Sounds; No Tenderness; No Distention Extremities: No Clubbing, Cyanosis, - - right knee immobilizer inplace , alexandre wrap drsg intact to right leg. DP+2 bilat, Skin: No Rash or Ulcers Neurological: - - confused to time, oriented to place and person Nutrition: Taking PO's Result Diagrams: 07/18/17 06:35 07/18/17 06:35 Microbiology and Other Data: Microbiology 07/15/17 22:25 Urine Culture - Preliminary Urine Escherichia Coli Assess/Plan/Problems-Billing Assessment: This is 82 y.o female with an underlying history og dementia, a-fib, hypertension and anxiety that present to the emergency room after a fall. Patient c/o right leg pain. Spiral fracture to the right femur was confirmed. Surgery today, Received 1 unit PRBC last PM H/H improved , will continue to trends post surgery. - Patient Problems (1) Femur fracture, right Current Visit: Yes Status: Acute Code(s): S72.91XA - UNSP FRACTURE OF RIGHT FEMUR, INIT FOR CLOS FX SNOMED Code(s): 28489322 Comment: management per orthopedics PT/OT as per ortho (2) History of atrial fibrillation Current Visit: Yes Status: Acute Code(s): Z86.79 - PERSONAL HISTORY OF OTHER DISEASES OF THE CIRCULATORY SYSTEM SNOMED Code(s): 162743399 Comment: current in regular rhythum will place on telemetry post-op (3) UTI (urinary tract infection) Current Visit: No Status: Acute Comment: - low grade fever, no leukocytosis - Pt with history of recurrent UTIs - will place on ceftriaxone daily -urine culture positive for ecoli- S to ceftriaxone (4) HTN (hypertension) Current Visit: No Status: Acute Code(s): I10 - ESSENTIAL (PRIMARY) HYPERTENSION SNOMED Code(s): 46286177 Comment: Stable - not surrently taking medications at home monitor blood pressure (5) Anxiety Current Visit: No Status: Acute Code(s): F41.9 - ANXIETY DISORDER, UNSPECIFIED SNOMED Code(s): 94897614 Comment: supportive care (6) Anemia Current Visit: Yes Status: Acute Code(s): D64.9 - ANEMIA, UNSPECIFIED SNOMED Code(s): 067797009 Comment: New-suspect this is d/t her right femur fracture/ surgery Will continue to trend H/H transfused 1 unit of PRBC today for H/H 6.08/31 (7) Dementia Current Visit: Yes Status: Acute Code(s): F03.90 - UNSPECIFIED DEMENTIA WITHOUT BEHAVIORAL DISTURBANCE SNOMED Code(s): 16002666 Comment: supportive care call buckner in reach (8) DVT prophylaxis Current Visit: No Status: Acute Code(s): LNK6420 - SNOMED Code(s): 778571747 Comment: Heparin 5000 units SCD's (9) DNR (do not resuscitate) Current Visit: Yes Status: Acute Comment: will maintain MOLST completed (10) Hypomagnesemia Current Visit: Yes Status: Acute Code(s): E83.42 - HYPOMAGNESEMIA SNOMED Code(s): 844502461 Comment: Magnesium level today was 1.6 Magnesium 2 grams IV given Will repeat Magnesium level in the AM Status and Disposition: inpatient- will need rehab post surgery
[2017-07-18] MEDS: cefTRIAXone(*) 1 GM in NS 0.9% 50 ML* 50 ML IVPB SCH (14:18)
[2017-07-18] MEDS: NS 0.9% 1000 ML* 1,000 ML IV SCH (15:02)
--- NOTE | 2017-07-18 16:10 | PN ---
Progress Note - Progress Note Date of Service: 07/18/17 SOAP: Subjective: POD1 from ORIF R distal femur. confused. family at bedside. appears to not be in pain. Objective: Temp Pulse Resp BP Pulse Ox 99.3 F 113 20 123/43 93 07/18/17 01:50 07/18/17 07:18 07/18/17 08:00 07/18/17 07:18 07/18/17 07:18 NAD. sleepy but arousable. not oriented. brace and dressing in place. spontaneously moves foot and toes. WWP extremity. responds to sensation. brisk cap refill Laboratory Results - last 24 hr 07/15/17 07/17/17 07/18/17 20:00 16:50 06:35 WBC 6.9 RBC 1.99 L Hgb 8.8 L 6.2 L* Hct 26 L 18 L MCV 90 MCH 32 H MCHC 35 RDW 15 Plt Count 205 MPV 7 L Sodium Potassium Chloride Carbon Dioxide Anion Gap BUN Creatinine Est GFR ( Amer) Est GFR (Non-Af Amer) BUN/Creatinine Ratio Glucose Calcium Magnesium Blood Type O Negative Antibody Screen Negative Crossmatch See Detail 07/18/17 06:35 WBC RBC Hgb Hct MCV MCH MCHC RDW Plt Count MPV Sodium 137 Potassium 3.7 Chloride 108 Carbon Dioxide 22 Anion Gap 7 BUN 23 Creatinine 0.47 L Est GFR ( Amer) 163.2 Est GFR (Non-Af Amer) 126.9 BUN/Creatinine Ratio 48.9 H Glucose 125 H Calcium 7.7 L Magnesium 1.6 L Blood Type Antibody Screen Crossmatch Assessment: POD1 from R distal femur ORIF. Plan: TTWB. sit to stand. ROM as tolerated of knee. will transition to hinged knee brace. dvt ppx ACBLA- HCT 18 and then 1 unit today. will recheck HCT cont abx for 24 hours dressing change tomorrow. PT/OT OOB to chair.
[2017-07-18 16:44] LABS: Hematocrit 22 % (35-47); Hemoglobin 7.8 g/dl (12.0-16.0)
[2017-07-19] MEDS: NS 0.9% 1000 ML* 1,000 ML IV SCH (05:05)
[2017-07-19] MEDS: Heparin VIAL(*) 5000 UNITS/ML VIAL (FIVE THOUSAND) SUBCUT SCH ×2 (07:02→13:29)
[2017-07-19] MEDS: Docusate CAP* 100 MG PO SCH ×2 (09:42→21:24)
[2017-07-19] MEDS: Pantoprazole IV* 40 MG IV SCH (09:43)
--- NOTE | 2017-07-19 09:44 | PN ---
Progress Note - Progress Note Date of Service: 07/19/17 SOAP: Subjective NAD. confused and being fed by aide. Sitting in bed comfortably. IROM in place Objective: Temp Pulse Resp BP Pulse Ox 98.8 F 120 16 122/78 92 07/19/17 07:18 07/19/17 07:18 07/19/17 07:18 07/19/17 07:18 07/19/17 07:18 NAD. alert and eating. non communicative. confused. not following commands. RLE , dressing in place. brace in place. spontaneous motion of ankle and toes. brisk cap refill. mild edema Laboratory Results - last 24 hr 07/15/17 07/18/17 20:00 16:31 Hgb 7.8 L Hct 22 L Blood Type O Negative Antibody Screen Negative Crossmatch See Detail Assessment: POD#2 from R femur ORIF Plan: TTWB being ROM of knee. PT/OT ACBLA responded to unit. will cont to follow hct dispo pending dressing to be changed today.
[2017-07-19 11:43] LABS: Hematocrit 20 % (35-47); Hemoglobin 6.9 g/dl (12.0-16.0)
[2017-07-19 12:07] LABS: EGFR Non-African American 190.8 (>60)
--- NOTE | 2017-07-19 12:23 | PN ---
Subjective Date of Service: 07/19/17 Interval History: Pt examined today at the bedside. Pt denies having chest pain and denies abdominal pain. Denies sob. States her pain is well controlled. Denies lightheadedness, denies loc. ROS-denies fever, denies chills, denies chest pain, denies sob, denies nausea, denies vomiting, denies lightheadedness, denies loc, review of 11 systems completed all others negative, Family History: Unchanged from Admission Social History: Unchanged from Admission Past Medical History: Unchanged from Admission Objective Active Medications: Acetaminophen (Tylenol Tab*) 650 mg PO Q6H PRN PRN Reason: FEVER/PAIN Last Admin: 07/18/17 08:12 Dose: 650 mg Docusate Sodium (Colace Cap*) 200 mg PO BID [facility] Last Admin: 07/19/17 09:42 Dose: Not Given Heparin Sodium (Porcine) (Heparin Vial(*)) 5,000 units SUBCUT Q8HR [facility] Last Admin: 07/19/17 07:02 Dose: 5,000 units Sodium Chloride (Ns 0.9% 1000 Ml*) 1,000 mls @ 75 mls/hr IV PER RATE [facility] Last Admin: 07/19/17 05:05 Dose: 75 mls/hr Ceftriaxone Sodium 1 gm/ (Sodium Chloride) 50 mls @ 200 mls/hr IVPB 1200 [facility] Last Admin: 07/18/17 14:18 Dose: 200 mls/hr Melatonin (Melatonin (Nf)) 3 mg PO BEDTIME PRN; Protocol PRN Reason: Sleep Last Admin: 07/18/17 21:47 Dose: 3 mg Ondansetron HCl (Zofran Inj*) 4 mg IV Q6H PRN PRN Reason: NAUSEA Last Admin: 07/15/17 22:21 Dose: 4 mg Pantoprazole Sodium (Protonix Iv*) 40 mg IV DAILY [facility] Last Admin: 07/19/17 09:43 Dose: 40 mg Tramadol HCl (Ultram*) 50 mg PO Q6H PRN PRN Reason: PAIN - SEVERE Last Admin: 07/17/17 22:17 Dose: 50 mg Vital Signs - 8 hr 07/19/17 07:18 Temperature 98.8 F Pulse Rate 120 Respiratory 16 Rate Blood Pressure 122/78 (mmHg) O2 Sat by Pulse 92 Oximetry Oxygen Devices in Use Now: None Appearance: 82 y/o female patient NAD sitting in bed, Eyes: No Scleral Icterus Ears/Nose/Mouth/Throat: NL Teeth, Lips, Gums Neck: NL Appearance and Movements; NL JVP Respiratory: Symmetrical Chest Expansion and Respiratory Effort Cardiovascular: NL Sounds; No Murmurs; No JVD, RRR Abdominal: NL Sounds; No Tenderness; No Distention Extremities: No Edema Skin: - - dressing to RLE CDI, old sanginous drainage, Neurological: Alert and Oriented x 3 Lines/Tubes/Other Access: Clean, Dry and Intact Peripheral IV Result Diagrams: 07/19/17 11:32 07/19/17 11:32 Microbiology and Other Data: Microbiology 07/15/17 22:25 Urine Culture - Preliminary Urine Escherichia Coli Assess/Plan/Problems-Billing Assessment: This is 82 y.o female with an underlying history of dementia, a-fib, hypertension and anxiety that present to the emergency room after a fall. Patient c/o right leg pain. Spiral fracture to the right femur was confirmed s/ p orif right femur - Patient Problems (1) A-fib Current Visit: Yes Status: Acute Priority: High Comment: Rate this am 120 on asculation HR 90, will follow on tele, HR 86, will follow (2) Anemia Current Visit: Yes Status: Acute Priority: High Comment: HGB 6.9 this am will give two units, today, suspect r/t acute blood loss anemia, (3) DNR (do not resuscitate) Current Visit: Yes Status: Acute Priority: High Comment: will maintain MOLST completed (4) Dementia Current Visit: Yes Status: Acute Priority: High Comment: has overlying delirium from surgery supportive care (5) Femur fracture, right Current Visit: Yes Status: Acute Priority: High Comment: management per orthopedics PT/OT as per ortho POD2 mobilze PT today (6) Anxiety Current Visit: Yes Status: Acute Priority: High Comment: supportive care (7) DVT prophylaxis Current Visit: Yes Status: Acute Priority: High Comment: Heparin 5000 units SCD's (8) HTN (hypertension) Current Visit: Yes Status: Acute Priority: High Comment: Stable - not surrently taking medications at home monitor blood pressure Status and Disposition: inpatient- will need rehab post surgery
[2017-07-19] MEDS ORDERED: Furosemide IV* 10 MG/ML 2 ML VIAL (20 MG) IV SLOW PU ONE (12:28)
[2017-07-19] MEDS: cefTRIAXone(*) 1 GM in NS 0.9% 50 ML* 50 ML IVPB SCH (12:28)
[2017-07-19] MEDS: Acetaminophen TAB* 325 MG PO PRN (13:28)
[2017-07-19] MEDS ORDERED: Acetaminophen TAB* 325 MG PO ONE (14:34)
[2017-07-19] MEDS ORDERED: Potassium Chlor TAB* 10 MEQ TAB.ER PO ONE (14:36)
[2017-07-19] MEDS ORDERED: Acetaminophen SUPP* 325 MG SUPP PR ONE (14:44)
[2017-07-19] MEDS: KCL 10 MEQ/50 ML IVPREMIX* 10 MEQ/50 ML BAG IV SCH ×3 (14:50→17:38)
--- NOTE | 2017-07-19 14:56 | PN ---
Hospitalist Progress Note Date of Service: 07/19/17 Called to bedside for fever and AMS. Patient following commands she states her name. She is able to lift both arms and move the RLE, She is confused to place and time. Will give additional 325 acetaminophen, plan for cxr, I/S, blood cx, flu swab, will no broaden abx unless new source present, no focal deficits noted , no wheezes heard, rhonchi in upper airways heard,
--- NOTE | 2017-07-19 15:30 | RAD ---
INDICATION: Fever, postop. COMPARISON: Comparison is made with a prior chest x-ray study from July 15, 2017. TECHNIQUE: A portable view of the chest was obtained. FINDINGS: The heart appears to be within normal limits in size. The lungs are underinflated and grossly clear. There appear to be trace bilateral pleural effusions. IMPRESSION: TRACE BILATERAL PLEURAL EFFUSIONS.
--- NOTE | 2017-07-19 19:01 | OP ---
CC: PCP OPERATIVE REPORT: DATE OF OPERATION: 07/17/17 DATE OF : 35 SURGEON: Juliette Salgado MD DIAGNOSTIC RADIOLOGIC TECHNOLOGIST: HECTOR Avila ANESTHESIOLOGIST: Steve Roberts MD ANESTHESIA: Spinal with local MAC. PRE-OP DIAGNOSIS: Right hip distal femur fracture. POST-OP DIAGNOSIS: Right hip distal femur fracture. OPERATIVE PROCEDURE: Right distal femur fracture open reduction internal fixation. INDICATIONS: Ele Sloan is an 82-year-old female with a previous history of right total hip replacement multiple years ago, who sustained a fall while at home and she was found down. She had bruising and pain in her left shoulder, left hip, and an obvious deformity to her right leg. She was found to have a distal femur fracture with minimal comminution, but complete displacement involving at the junction of mid to distal third, distal aspect of the femur. She was medically optimized for surgical treatment. We waited for the appropriate hardware to take her to surgery. Risks and benefits were discussed at length with the family and included but are not limited to bleeding, infection, damage to nerves, vessels, surrounding structures, wound nonhealing, persistent pain, need for further surgery, scarring, stiffness, incomplete relief of symptoms, fracture, nonunion, malunion, failure of the hardware, risk of DVT, risk of mortality, risk of anesthesia. Her family has elected to proceed as she has dementia and cannot decide for herself. ESTIMATED BLOOD LOSS: 500 cc. COMPLICATIONS: None. IMPLANTS USED: Synthes variable angle distal femur locking plate, size 30 cm with the appropriate length screws and 2 Synthes cerclage wires. DESCRIPTION OF PROCEDURE: The patient was greeted in the preoperative area by the attending surgeon. Correct extremity was marked, consent was confirmed. The patient was then brought back to the operating suite where she was placed on the flat top table. She then was sat up, underwent spinal anesthesia. It was found this may not have worked; therefore, a second spinal was done with the patient rolled on her right side. After this was done and was confirmed to have worked, the patient was positioned appropriately with all bony prominences padded and a provisional x-ray was done to make sure that the fracture was easily able to be reduced even closed and once this was done, the right leg was prepped and draped in the usual sterile fashion beginning with chlorhexidine soap, scrub, and alcohol wipe, and a final prep with ChloraPrep. After appropriate surgical pause indicating site, side, procedure, and administration of antibiotics, and with the fluoroscopic guidance, a large lateral incision was made curved in a hockey stick fashion around the distal aspect of the thigh and around the knee joint. The soft tissue was carefully dissected to expose the fascia, which was then sharply incised. The vastus lateralis was then carefully elevated and the femur was exposed. The fracture was identified. The fracture ends were debrided using curette and the soft tissues were dissected using the Mike. Once the fracture ends were carefully removed of any loose debris and blood clot, the wound was irrigated. The fracture was then provisionally reduced with clamps. There was a small amount of comminution that was present. The fracture was then secured using the anterior and posterior 4.5 screw placed in the lag fashion after a reduction was done. Once this was done, the plate was brought to the field and the length was assessed. Once the appropriate length was determined, the plate was then brought to the bone and the secured. X-ray confirmed that it was distal enough as well as proximal enough to overlap the hip prosthesis. AP and lateral views confirmed placement of the plate. Once this was done, a guidewire was used distally to secure the fixation and the plate was fixed to the bone using a reduction clamp. This helped to remove any excess valgus or varus from the fracture site. The plate was fixed to the bone proximal to the fracture and distal to the total hip using a nonlocking screw. This helped to secure the plate to the bone, then distally fixation began, beginning with locking screws that were bicortical through the distal femur. These were confirmed with x- ray guidance. Once at least 5 screws were placed distally, the remainder of the screws was placed more proximally as well as distally to help for extra fixation of the fracture. Once the screws were placed proximally , 2 cerclage wires were placed proximally to help secure the plate to bone around. The final images were obtained. AP and lateral views were obtained, which showed that there was appropriate alignment, alevism of the femoral alignment, anterior and posterior as well as on lateral views. The knee was taken through range of motion and the hardware was found to be stable. Final images were obtained. The wound was copiously irrigated with sterile saline. The fascia was closed with 0 Vicryl in interrupted fashion. The subcutaneous tissues were closed with 2-0 Vicryl and the skin was closed with gwendolyn. The wound was injected with 0.25% Marcaine plain per total of 30 cc. Sterile dressings were applied as well as an John wrap. A knee immobilizer was placed for later transition an IROM brace to allow for range of motion. She was awoken from anesthesia and transferred to the PACU in stable condition. POSTOPERATIVE PLAN: She will be toe-touch weightbearing and allowed to sit to stand. She will be allowed to sit in the chair. She is allowed to work on active and passive range of motion as tolerated. DVT prophylaxis will continue for at least 6 weeks. She will not be full weightbearing until at least 4 weeks possibly 6 weeks. We will continue to monitor the patient. Hematocrit will be drawn postoperatively to make sure that there her hematocrit is stabilized. She will receive postoperative antibiotics. We will follow the patient while she is in- house and she will be discharged for followup in about 2 weeks. [id number]/[facility] #: [id number] CORDELL
[2017-07-19 21:28] LABS: Urine Appearance Clear; Urine Blood 1+ (Negative); Urine Color Straw; Urine Ketones Negative (Negative); Urine Protein Negative (Negative); Urine Specific Gravity 1.004 (1.010-1.030); Urine Urobilinogen Negative (Negative)
[2017-07-20] MEDS: Heparin VIAL(*) 5000 UNITS/ML VIAL (FIVE THOUSAND) SUBCUT SCH ×4 (00:05→22:35)
[2017-07-20 07:05] LABS: ABS Basophils 0 10^3/ul (0-0.2); ABS Eosinophils 0.1 10^3/ul (0-0.6); ABS Lymphocytes 0.8 10^3/ul (1.0-4.8); ABS Monocytes 0.8 10^3/ul (0-0.8); ABS Neutrophils 6.7 10^3/ul (1.5-7.7); ABS Nucleated RBC 0 10^3/ul; Eosinophil % 1.2 % (0-6); Hematocrit 28 % (35-47); Mean Corpuscular HGB Conc 35 g/dl (31-36); Mean Corpuscular Hemoglobin 31 pg (27-31); Mean Corpuscular Volume 89 fL (80-97); Mean Platelet Volume 7 um3 (7.4-10.4); Nucleated Red Blood Cells % 0; Platelet Count 214 10^3/ul (150-450); Red Blood Count 3.18 10^6/ul (4.0-5.4); Red Cell Distribution Width 14 % (10.5-15); White Blood Count 8.4 10^3/ul (3.5-10.8)
[2017-07-20] MEDS: NS 0.9% 1000 ML* 1,000 ML IV SCH (07:16)
[2017-07-20 07:40] LABS: EGFR Non-African American 197.7 (>60)
[2017-07-20] MEDS: Docusate CAP* 100 MG PO SCH ×2 (09:17→22:35)
[2017-07-20] MEDS: Pantoprazole IV* 40 MG IV SCH (09:17)
--- NOTE | 2017-07-20 09:35 | PN ---
Progress Note - Progress Note Date of Service: 07/20/17 SOAP: Subjective: POD# 3 from R distal femur ORIF. More subdued today. Not conversant. Quiet. Per nursing, PT came to see at 5 pm and recommended kristen lift. Has not been out of bed to chair in spite of order. Hinged brace in place. Family not arrived at bedside today. Spiked temp yesterday. + UA. Objective: Vital Signs 07/19/17 07/19/17 07/19/17 12:04 14:25 15:25 Temperature 100.0 F 101.2 F 99.6 F Pulse Rate 118 Respiratory 16 22 Rate Blood Pressure 115/54 123/58 (mmHg) O2 Sat by Pulse 93 Oximetry 07/19/17 07/19/17 07/19/17 15:40 16:00 20:42 Temperature 99.8 F Pulse Rate 110 Respiratory 18 20 Rate Blood Pressure 112/48 (mmHg) O2 Sat by Pulse 95 Oximetry 07/19/17 07/20/17 20:43 03:36 Temperature Pulse Rate 107 Respiratory 20 16 Rate Blood Pressure 146/74 (mmHg) O2 Sat by Pulse 92 Oximetry NAD. sleepy, eyes open but not responding. RLE: dressing and brace in place. no strikethrough. spontaneous movement of extremities but less than prior to surgery. calf soft, warm, well perfused. not cooperating with exam. less edema Laboratory Results - last 24 hr 07/19/17 07/19/17 07/19/17 11:29 11:32 11:32 WBC RBC Hgb 6.9 L Hct 20 L MCV MCH MCHC RDW Plt Count MPV Neut % (Auto) Lymph % (Auto) [place] % (Auto) Eos % (Auto) Baso % (Auto) Absolute Neuts (auto) Absolute Lymphs (auto) Absolute Monos (auto) Absolute Eos (auto) Absolute Basos (auto) Absolute Nucleated RBC Nucleated RBC % Sodium 137 Potassium 3.2 L Chloride 108 Carbon Dioxide 23 Anion Gap 6 BUN 18 Creatinine 0.33 L Est GFR ( Amer) 245.4 Est GFR (Non-Af Amer) 190.8 BUN/Creatinine Ratio 54.5 H Glucose 113 H Calcium 7.5 L Magnesium 1.6 L Urine Color Urine Appearance Urine pH Ur Specific Kamrar Urine Protein Urine Ketones Urine Blood Urine Nitrate Urine Bilirubin Urine Urobilinogen Ur Leukocyte Esterase Urine WBC (Auto) Urine RBC (Auto) Ur Squamous Epith Cells Urine Bacteria Urine Glucose Influenza A (Rapid) Influenza B (Rapid) Blood Type O Negative Antibody Screen Negative Crossmatch See Detail 07/19/17 07/19/17 07/20/17 16:10 20:56 06:23 WBC 8.4 RBC 3.18 L Hgb 10.0 L Hct 28 L MCV 89 MCH 31 MCHC 35 RDW 14 Plt Count 214 MPV 7 L Neut % (Auto) 79.9 Lymph % (Auto) 9.0 L [place] % (Auto) 9.4 H Eos % (Auto) 1.2 Baso % (Auto) 0.5 Absolute Neuts (auto) 6.7 Absolute Lymphs (auto) 0.8 L Absolute Monos (auto) 0.8 Absolute Eos (auto) 0.1 Absolute Basos (auto) 0 Absolute Nucleated RBC 0 Nucleated RBC % 0 Sodium Potassium Chloride Carbon Dioxide Anion Gap BUN Creatinine Est GFR ( Amer) Est GFR (Non-Af Amer) BUN/Creatinine Ratio Glucose Calcium Magnesium Urine Color Straw Urine Appearance Clear Urine pH 6.0 Ur Specific [place] 1.004 L Urine Protein Negative Urine Ketones Negative Urine Blood 1+ H Urine Nitrate Negative Urine Bilirubin Negative Urine Urobilinogen Negative Ur Leukocyte Esterase Negative Urine WBC (Auto) Absent Urine RBC (Auto) Absent Ur Squamous Epith Cells Present H Urine Bacteria Absent Urine Glucose Negative Influenza A (Rapid) Negative Influenza B (Rapid) Negative Blood Type Antibody Screen Crossmatch 07/20/17 06:29 WBC RBC Hgb Hct MCV MCH MCHC RDW Plt Count MPV Neut % (Auto) Lymph % (Auto) [place] % (Auto) Eos % (Auto) Baso % (Auto) Absolute Neuts (auto) Absolute Lymphs (auto) Absolute Monos (auto) Absolute Eos (auto) Absolute Basos (auto) Absolute Nucleated RBC Nucleated RBC % Sodium 137 Potassium 3.4 L Chloride 105 Carbon Dioxide 25 Anion Gap 7 BUN 14 Creatinine 0.32 L Est GFR ( Amer) 254.2 Est GFR (Non-Af Amer) 197.7 BUN/Creatinine Ratio 43.8 H Glucose 81 Calcium 7.5 L Magnesium Urine Color Urine Appearance Urine pH Ur Specific [place] Urine Protein Urine Ketones Urine Blood Urine Nitrate Urine Bilirubin Urine Urobilinogen Ur Leukocyte Esterase Urine WBC (Auto) Urine RBC (Auto) Ur Squamous Epith Cells Urine Bacteria Urine Glucose Influenza A (Rapid) Influenza B (Rapid) Blood Type Antibody Screen Crossmatch Assessment: POD#3 from R distal femur ORIF Plan: Concerned for lack of mobilization Discussed with PT and nursing that patient needs to be out of bed. Risk of bedsores, pneumonia, dvt increases substantially with no mobilization Discussed with Catracho Noland who is aware. s/p 2 units. perez cultured. will continue to be vigilant dressing changed yesterday. acbla- s/p 2 units yesterday please get patient out of bed today. TTWB
--- NOTE | 2017-07-20 10:02 | PN ---
Subjective Date of Service: 07/20/17 Interval History: Pt examined at the bedside today. At first patient noted to be drowsy upon talking loudly to patient she responds and says shes not doing well. I ask what is bothering her she say a little bit of everything. I explain that we are getting her up to the chair today she requests for Kodi and than says in her words "bullshit" when asked who Kodi was Ros attempted but patient unable to answer questions appropriately. Family History: Unchanged from Admission Social History: Unchanged from Admission Past Medical History: Unchanged from Admission Objective Active Medications: Acetaminophen (Tylenol Tab*) 650 mg PO Q4H PRN PRN Reason: FEVER/PAIN Docusate Sodium (Colace Cap*) 200 mg PO BID [facility] Last Admin: 07/20/17 09:17 Dose: Not Given Heparin Sodium (Porcine) (Heparin Vial(*)) 5,000 units SUBCUT Q8HR [facility] Last Admin: 07/20/17 06:11 Dose: 5,000 units Sodium Chloride (Ns 0.9% 1000 Ml*) 1,000 mls @ 75 mls/hr IV PER RATE [facility] Last Admin: 07/20/17 07:16 Dose: 75 mls/hr Ceftriaxone Sodium 1 gm/ (Sodium Chloride) 50 mls @ 200 mls/hr IVPB 1200 [facility] Last Admin: 07/19/17 12:28 Dose: 200 mls/hr Melatonin (Melatonin (Nf)) 3 mg PO BEDTIME PRN; Protocol PRN Reason: Sleep Last Admin: 07/18/17 21:47 Dose: 3 mg Ondansetron HCl (Zofran Inj*) 4 mg IV Q6H PRN PRN Reason: NAUSEA Last Admin: 07/15/17 22:21 Dose: 4 mg Pantoprazole Sodium (Protonix Iv*) 40 mg IV DAILY [facility] Last Admin: 07/20/17 09:17 Dose: 40 mg Vital Signs - 8 hr 07/20/17 03:36 Pulse Rate 107 Respiratory 16 Rate Blood Pressure 146/74 (mmHg) O2 Sat by Pulse 92 Oximetry Oxygen Devices in Use Now: None Appearance: 82 y/o female patient sitting in bed NAD, awakens to name and voice Eyes: No Scleral Icterus, PERRLA Ears/Nose/Mouth/Throat: NL Teeth, Lips, Gums Neck: NL Appearance and Movements; NL JVP Respiratory: Symmetrical Chest Expansion and Respiratory Effort, Clear to Auscultation Cardiovascular: NL Sounds; No Murmurs; No JVD Abdominal: NL Sounds; No Tenderness; No Distention Extremities: No Edema, - - distal csm checks intact Skin: - - dressing to RLE CDI Neurological: - - Drowsy at first but than awakens to voice and agigtated, Knows name and place, confused to month no focal deficits Lines/Tubes/Other Access: Clean, Dry and Intact Peripheral IV Result Diagrams: 07/20/17 06:23 07/20/17 06:29 Microbiology and Other Data: Microbiology 07/15/17 22:25 Urine Culture - Preliminary Urine Escherichia Coli Assess/Plan/Problems-Billing Assessment: This is 82 y.o female with an underlying history of dementia, a-fib, hypertension and anxiety that present to the emergency room after a fall. Patient c/o right leg pain. Spiral fracture to the right femur was confirmed s/ p orif right femur - Patient Problems (1) A-fib Current Visit: Yes Status: Acute Priority: High Comment: Rate this am 95, will follow on tele, HR 86, will follow (2) Anemia Current Visit: Yes Status: Acute Priority: High Comment: HGB 10 after two units, yesterday will follow (3) DNR (do not resuscitate) Current Visit: Yes Status: Acute Priority: High Comment: will maintain MOLST completed (4) Dementia Current Visit: Yes Status: Acute Priority: High Comment: has overlying delirium from surgery concern today by ortho due to drowsiness, pt when stimulated agigated and knows name and place, suspect multifactorial delirium from anesthsia, haldol and post- op fever, supportive care (5) Femur fracture, right Current Visit: Yes Status: Acute Priority: High Comment: management per orthopedics PT/OT as per ortho POD3 mobilze PT today D/C pappas (6) Anxiety Current Visit: Yes Status: Acute Priority: High Comment: supportive care (7) DVT prophylaxis Current Visit: Yes Status: Acute Priority: High Comment: Heparin 5000 units SCD's (8) HTN (hypertension) Current Visit: Yes Status: Acute Priority: High Comment: Stable - not surrently taking medications at home monitor blood pressure (9) Postsurgical fever Current Visit: Yes Status: Acute Priority: High Comment: Fever yesterday of 101.2 suspect r/t atelectasis, will ordered chest PT flutter valve, perez cx sent flu neg, urine improved, continue ceftriaxone for 7 days await blood cultures, cxr shows small effusion bilaterally, Status and Disposition: inpatient- will need rehab post surgery
[2017-07-20] MEDS: cefTRIAXone(*) 1 GM in NS 0.9% 50 ML* 50 ML IVPB SCH (11:27)
[2017-07-20] MEDS: Acetaminophen TAB* 325 MG PO PRN ×2 (11:41→17:33)
[2017-07-20] MEDS ORDERED: Acetaminophen TAB* 325 MG PO ONE (14:00)
[2017-07-21] MEDS: Heparin VIAL(*) 5000 UNITS/ML VIAL (FIVE THOUSAND) SUBCUT SCH ×3 (06:28→20:30)
[2017-07-21 06:35] LABS: ABS Basophils 0 10^3/ul (0-0.2); ABS Eosinophils 0.3 10^3/ul (0-0.6); ABS Lymphocytes 0.8 10^3/ul (1.0-4.8); ABS Monocytes 0.6 10^3/ul (0-0.8); ABS Neutrophils 4.9 10^3/ul (1.5-7.7); ABS Nucleated RBC 0 10^3/ul; Eosinophil % 4.4 % (0-6); Hematocrit 29 % (35-47); Hemoglobin 10.3 g/dl (12.0-16.0); Lymphocyte % 12.6 % (25-47); Mean Corpuscular HGB Conc 35 g/dl (31-36); Mean Corpuscular Hemoglobin 31 pg (27-31); Mean Corpuscular Volume 90 fL (80-97); Mean Platelet Volume 6 um3 (7.4-10.4); Nucleated Red Blood Cells % 0.1; Platelet Count 228 10^3/ul (150-450); Red Blood Count 3.29 10^6/ul (4.0-5.4); Red Cell Distribution Width 14 % (10.5-15); White Blood Count 6.7 10^3/ul (3.5-10.8)
[2017-07-21 06:49] LABS: EGFR Non-African American 197.7 (>60)
[2017-07-21] MEDS ORDERED: cefTRIAXone(*) 1 GM in D5W 50 ML BAG* 50 ML IVPB SCH (09:23)
[2017-07-21] MEDS: Pantoprazole IV* 40 MG IV SCH (11:06)
[2017-07-21] MEDS: Acetaminophen TAB* 325 MG PO PRN ×2 (11:06→17:27)
[2017-07-21] MEDS: Docusate CAP* 100 MG PO SCH ×2 (11:07→20:29)
[2017-07-21] MEDS: cefTRIAXone(*) 1 GM in NS 0.9% 50 ML* 50 ML IVPB SCH (11:59)
--- NOTE | 2017-07-21 14:35 | PN ---
Progress Note - Progress Note Date of Service: 07/21/17 SOAP: Subjective: []Patient seen at bedside. Initially she states she has no pain, but later that she is in terrible pain. Denies CP, SOB. Objective: [] Vital Signs Temp 98.1 F 07/21/17 07:44 Pulse 75 07/21/17 07:44 Resp 16 07/21/17 07:44 BP 148/70 07/21/17 07:44 Pulse Ox 91 07/21/17 08:00 Intake & Output 07/20/17 07/21/17 07/21/17 18:59 06:59 18:59 Intake Total 110 4227 480 Output Total 825 880 Balance -715 3347 480 Intake: IV Fluids 4227 NS (0.9%) 4227 Oral 110 0 480 Output: Reddy 825 880 Other: Estimated Void Medium Large Medium # Bowel Movements 0 0 0 # Voids 1 1 3 Laboratory Last Values WBC 6.7 10^3/ul (3.5-10.8) 07/21/17 06:24 RBC 3.29 10^6/ul (4.0-5.4) L 07/21/17 06:24 Hgb 10.3 g/dl (12.0-16.0) L 07/21/17 06:24 Hct 29 % (35-47) L 07/21/17 06:24 MCV 90 fL (80-97) 07/21/17 06:24 MCH 31 pg (27-31) 07/21/17 06:24 MCHC 35 g/dl (31-36) 07/21/17 06:24 RDW 14 % (10.5-15) 07/21/17 06:24 Plt Count 228 10^3/ul (150-450) 07/21/17 06:24 MPV 6 um3 (7.4-10.4) L 07/21/17 06:24 Neut % (Auto) 73.7 % (38-83) 07/21/17 06:24 Lymph % (Auto) 12.6 % (25-47) L 07/21/17 06:24 [place] % (Auto) 8.8 % (1-9) 07/21/17 06:24 Eos % (Auto) 4.4 % (0-6) 07/21/17 06:24 Baso % (Auto) 0.5 % (0-2) 07/21/17 06:24 Absolute Neuts (auto) 4.9 10^3/ul (1.5-7.7) 07/21/17 06:24 Absolute Lymphs (auto) 0.8 10^3/ul (1.0-4.8) L 07/21/17 06:24 Absolute Monos (auto) 0.6 10^3/ul (0-0.8) 07/21/17 06:24 Absolute Eos (auto) 0.3 10^3/ul (0-0.6) 07/21/17 06:24 Absolute Basos (auto) 0 10^3/ul (0-0.2) 07/21/17 06:24 Absolute Nucleated RBC 0 10^3/ul 07/21/17 06:24 Nucleated RBC % 0.1 07/21/17 06:24 INR (Anticoag Therapy) 0.95 (0.77-1.02) 07/15/17 20:00 APTT 27.9 seconds (26.0-36.3) 07/15/17 20:00 Sodium 138 mmol/L (133-145) 07/21/17 06:24 Potassium 3.5 mmol/L (3.5-5.0) 07/21/17 06:24 Chloride 105 mmol/L (101-111) 07/21/17 06:24 Carbon Dioxide 30 mmol/L (22-32) 07/21/17 06:24 Anion Gap 3 mmol/L (2-11) 07/21/17 06:24 BUN 10 mg/dL (6-24) 07/21/17 06:24 Creatinine 0.32 mg/dL (0.51-0.95) L 07/21/17 06:24 Est GFR ( Amer) 254.2 (>60) 07/21/17 06:24 Est GFR (Non-Af Amer) 197.7 (>60) 07/21/17 06:24 BUN/Creatinine Ratio 31.3 (8-20) H 07/21/17 06:24 Glucose 82 mg/dL (70-100) 07/21/17 06:24 Lactic Acid 0.9 mmol/L (0.5-2.0) 07/15/17 20:00 Calcium 7.9 mg/dL (8.6-10.3) L 07/21/17 06:24 Magnesium 1.6 mg/dL (1.9-2.7) L 07/19/17 11:32 Total Bilirubin 0.70 mg/dL (0.2-1.0) 07/15/17 20:00 AST 18 U/L (13-39) 07/15/17 20:00 ALT 16 U/L (7-52) 07/15/17 20:00 Alkaline Phosphatase 93 U/L (34-104) 07/15/17 20:00 Total Protein 6.1 g/dL (6.4-8.9) L 07/15/17 20:00 Albumin 3.5 g/dL (3.2-5.2) 07/15/17 20:00 Globulin 2.6 g/dL (2-4) 07/15/17 20:00 Albumin/Globulin Ratio 1.3 (1-3) 07/15/17 20:00 Urine Color Straw 07/19/17 20:56 Urine Appearance Clear 07/19/17 20:56 Urine pH 6.0 (5-9) 07/19/17 20:56 Ur Specific [place] 1.004 (1.010-1.030) L 07/19/17 20:56 Urine Protein Negative (Negative) 07/19/17 20:56 Urine Ketones Negative (Negative) 07/19/17 20:56 Urine Blood 1+ (Negative) H 07/19/17 20:56 Urine Nitrate Negative (Negative) 07/19/17 20:56 Urine Bilirubin Negative (Negative) 07/19/17 20:56 Urine Urobilinogen Negative (Negative) 07/19/17 20:56 Ur Leukocyte Esterase Negative (Negative) 07/19/17 20:56 Urine WBC (Auto) Absent (Absent) 07/19/17 20:56 Urine RBC (Auto) Absent (Absent) 07/19/17 20:56 Ur Squamous Epith Cells Present (Absent) H 07/19/17 20:56 Urine Bacteria Absent (Absent) 07/19/17 20:56 Urine Glucose Negative (Negative) 07/19/17 20:56 Influenza A (Rapid) Negative (Negative) 07/19/17 16:10 Influenza B (Rapid) Negative (Negative) 07/19/17 16:10 Blood Type O Negative 07/19/17 11:29 Antibody Screen Negative 07/19/17 11:29 Crossmatch See Detail 07/19/17 11:29 General: Laying in bed, comfortable appearing. Calm and cooperative today. RLE: Immobilizer in place. DF/PF intact. 1+ DP pulse, sensation intact distally. Assessment: []POD#4 from R distal femur ORIF Plan: Concerned for lack of mobilization Discussed with PT, did get patient out of bed today TTWB Continued pain control
--- NOTE | 2017-07-21 15:49 | PN ---
Subjective Date of Service: 07/21/17 Interval History: Patient examined at bedside today, awake to verbal, oriented to name. denies any pain. Denies CP or SOB. Denies N/V/D. Denies urinary frequency or urgency. Family History: Unchanged from Admission Social History: Unchanged from Admission Past Medical History: Unchanged from Admission Objective Active Medications: Acetaminophen (Tylenol Tab*) 650 mg PO Q4H PRN PRN Reason: FEVER/PAIN Last Admin: 07/21/17 11:06 Dose: 650 mg Docusate Sodium (Colace Cap*) 200 mg PO BID [facility] Last Admin: 07/21/17 11:07 Dose: 200 mg Heparin Sodium (Porcine) (Heparin Vial(*)) 5,000 units SUBCUT Q8HR [facility] Last Admin: 07/21/17 14:31 Dose: 5,000 units Ceftriaxone Sodium 1 gm/ (Sodium Chloride) 50 mls @ 200 mls/hr IVPB 1200 [facility] Stop: 07/22/17 11:59 Last Admin: 07/21/17 11:59 Dose: 200 mls/hr Ceftriaxone Sodium 1 gm/ (Dextrose) 50 mls @ 200 mls/hr IVPB Q24H [facility] Ondansetron HCl (Zofran Inj*) 4 mg IV Q6H PRN PRN Reason: NAUSEA Last Admin: 07/15/17 22:21 Dose: 4 mg Pantoprazole Sodium (Protonix Iv*) 40 mg IV DAILY [facility] Last Admin: 07/21/17 11:06 Dose: 40 mg Vital Signs - 8 hr 07/21/17 08:00 Respiratory 16 Rate O2 Sat by Pulse 91 Oximetry Oxygen Devices in Use Now: None Appearance: alert to verbal, oriented to self,confused to place and time, pleasent Eyes: No Scleral Icterus Ears/Nose/Mouth/Throat: NL Teeth, Lips, Gums, Mucous Membranes Moist Neck: NL Appearance and Movements; NL JVP, Trachea Midline Respiratory: Symmetrical Chest Expansion and Respiratory Effort, Clear to Auscultation Cardiovascular: NL Sounds; No Murmurs; No JVD, No Edema Abdominal: NL Sounds; No Tenderness; No Distention Extremities: No Clubbing, Cyanosis, - - mild amt of swelling noted to right knee and thigh, eccymotic discoloration noted to right hip area, dressing intake to right thigh. DP +2 bilaterally. ecchymotic area noted to left shoulder. Neurological: - - oriented to self, confused to place and time. Result Diagrams: 07/22/17 05:29 07/22/17 05:29 Microbiology and Other Data: Microbiology 07/15/17 22:25 Urine Culture - Preliminary Urine Escherichia Coli Assess/Plan/Problems-Billing Assessment: This is 82 y.o female with an underlying history of dementia, a-fib, hypertension and anxiety that present to the emergency room after a fall. Patient c/o right leg pain. Spiral fracture to the right femur was confirmed s/ p orif right femur - Patient Problems (1) Femur fracture, right Current Visit: Yes Status: Acute Priority: High Code(s): S72.91XA - UNSP FRACTURE OF RIGHT FEMUR, INIT FOR CLOS FX SNOMED Code(s): 53077753 Comment: management per orthopedics PT/OT as per ortho POD5 mobilze PT today- was oob to chair today (2) History of atrial fibrillation Current Visit: Yes Status: Acute Code(s): Z86.79 - PERSONAL HISTORY OF OTHER DISEASES OF THE CIRCULATORY SYSTEM SNOMED Code(s): 813191240 Comment: current in regular rhythum will place on telemetry post-op (3) UTI (urinary tract infection) Current Visit: No Status: Acute Comment: - low grade fever, no leukocytosis - Pt with history of recurrent UTIs - will place on ceftriaxone daily -urine culture positive for ecoli- S to ceftriaxone (4) HTN (hypertension) Current Visit: Yes Status: Acute Priority: High Code(s): I10 - ESSENTIAL ( PRIMARY) HYPERTENSION SNOMED Code(s): 44088157 Comment: Stable - not surrently taking medications at home monitor blood pressure (5) Anxiety Current Visit: Yes Status: Acute Priority: High Code(s): F41.9 - ANXIETY DISORDER, UNSPECIFIED SNOMED Code(s): 20062106 Comment: supportive care (6) Anemia Current Visit: Yes Status: Acute Priority: High Code(s): D64.9 - ANEMIA, UNSPECIFIED SNOMED Code(s): 999376787 Comment: HGB 10, stable will continue to trend. (7) Dementia Current Visit: Yes Status: Acute Priority: High Code(s): F03.90 - UNSPECIFIED DEMENTIA WITHOUT BEHAVIORAL DISTURBANCE SNOMED Code(s): 43019355 Comment: has overlying delirium from surgery concern today by ortho due to drowsiness, pt when stimulated agigated and knows name and place, suspect multifactorial delirium from anesthsia, haldol and post- op fever, continues to have have periods of agigation today. supportive care (8) DVT prophylaxis Current Visit: Yes Status: Acute Priority: High Code(s): MMW4571 - SNOMED Code(s): 066554151 Comment: Heparin 5000 units SCD's (9) DNR (do not resuscitate) Current Visit: Yes Status: Acute Priority: High Comment: will maintain MOLST completed (10) Hypomagnesemia Current Visit: Yes Status: Acute Code(s): E83.42 - HYPOMAGNESEMIA SNOMED Code(s): 499547588 Comment: Will repeat Magnesium level in the AM Status and Disposition: inpatient- will need rehab post surgery
[2017-07-21] MEDS ORDERED: Acetaminophen TAB* 325 MG PO ONE (17:20)
[2017-07-22] MEDS: Heparin VIAL(*) 5000 UNITS/ML VIAL (FIVE THOUSAND) SUBCUT SCH ×3 (05:03→20:00)
[2017-07-22 06:07] LABS: ABS Basophils 0.1 10^3/ul (0-0.2); ABS Eosinophils 0.2 10^3/ul (0-0.6); ABS Lymphocytes 0.9 10^3/ul (1.0-4.8); ABS Monocytes 0.7 10^3/ul (0-0.8); ABS Neutrophils 3.9 10^3/ul (1.5-7.7); ABS Nucleated RBC 0 10^3/ul; Eosinophil % 4.2 % (0-6); Hematocrit 29 % (35-47); Hemoglobin 9.8 g/dl (12.0-16.0); Mean Corpuscular HGB Conc 34 g/dl (31-36); Mean Corpuscular Hemoglobin 31 pg (27-31); Mean Corpuscular Volume 90 fL (80-97); Mean Platelet Volume 7 um3 (7.4-10.4); Nucleated Red Blood Cells % 0.1; Platelet Count 241 10^3/ul (150-450); Red Blood Count 3.17 10^6/ul (4.0-5.4); Red Cell Distribution Width 14 % (10.5-15); White Blood Count 5.8 10^3/ul (3.5-10.8)
[2017-07-22 06:18] LABS: EGFR Non-African American 184.3 (>60)
[2017-07-22] MEDS: Pantoprazole IV* 40 MG IV SCH (09:29)
[2017-07-22] MEDS: Acetaminophen TAB* 325 MG PO PRN ×2 (09:29→17:58)
[2017-07-22] MEDS: Docusate CAP* 100 MG PO SCH ×2 (09:30→19:55)
[2017-07-22] MEDS: cefTRIAXone(*) 1 GM in D5W 50 ML BAG* 50 ML IVPB SCH (11:50)
[2017-07-22] MEDS: Potassium Chlor TAB* 10 MEQ TAB.ER PO ONE ×3 (12:19→14:29)
--- NOTE | 2017-07-22 13:04 | PN ---
Progress Note - Progress Note Date of Service: 07/22/17 SOAP: Subjective: []Patient seen OOB in chair. She is cooperative and pleasant, no complaints today. Denies RLE pain, CP, SOB. Objective: []General: OOB in chair, comfortable appearing. Calm and cooperative today. RLE: Immobilizer in place. DF/PF intact. 1+ DP pulse, sensation intact distally. Vital Signs Temp 97.5 F 07/22/17 03:15 Pulse 64 07/22/17 07:36 Resp 16 07/22/17 08:00 BP 132/57 07/22/17 07:36 Pulse Ox 94 07/22/17 08:00 Intake & Output 07/21/17 07/22/17 07/22/17 18:59 06:59 18:59 Intake Total 840 100 100 Output Total 200 Balance 640 100 100 Intake: IVPB 250 NS (0.9%) 250 Oral 590 100 100 Output: Urine 200 Other: Estimated Void Large Large # Bowel Movements 0 0 # Voids 1 1 Laboratory Last Values WBC 5.8 10^3/ul (3.5-10.8) 07/22/17 05:29 RBC 3.17 10^6/ul (4.0-5.4) L 07/22/17 05:29 Hgb 9.8 g/dl (12.0-16.0) L 07/22/17 05:29 Hct 29 % (35-47) L 07/22/17 05:29 MCV 90 fL (80-97) 07/22/17 05:29 MCH 31 pg (27-31) 07/22/17 05:29 MCHC 34 g/dl (31-36) 07/22/17 05:29 RDW 14 % (10.5-15) 07/22/17 05:29 Plt Count 241 10^3/ul (150-450) 07/22/17 05:29 MPV 7 um3 (7.4-10.4) L 07/22/17 05:29 Neut % (Auto) 68.3 % (38-83) 07/22/17 05:29 Lymph % (Auto) 15.0 % (25-47) L 07/22/17 05:29 [place] % (Auto) 11.6 % (1-9) H 07/22/17 05:29 Eos % (Auto) 4.2 % (0-6) 07/22/17 05:29 Baso % (Auto) 0.9 % (0-2) 07/22/17 05:29 Absolute Neuts (auto) 3.9 10^3/ul (1.5-7.7) 07/22/17 05:29 Absolute Lymphs (auto) 0.9 10^3/ul (1.0-4.8) L 07/22/17 05:29 Absolute Monos (auto) 0.7 10^3/ul (0-0.8) 07/22/17 05:29 Absolute Eos (auto) 0.2 10^3/ul (0-0.6) 07/22/17 05:29 Absolute Basos (auto) 0.1 10^3/ul (0-0.2) 07/22/17 05:29 Absolute Nucleated RBC 0 10^3/ul 07/22/17 05:29 Nucleated RBC % 0.1 07/22/17 05:29 INR (Anticoag Therapy) 0.95 (0.77-1.02) 07/15/17 20:00 APTT 27.9 seconds (26.0-36.3) 07/15/17 20:00 Sodium 139 mmol/L (133-145) 07/22/17 05:29 Potassium 3.0 mmol/L (3.5-5.0) L 07/22/17 05:29 Chloride 106 mmol/L (101-111) 07/22/17 05:29 Carbon Dioxide 27 mmol/L (22-32) 07/22/17 05:29 Anion Gap 6 mmol/L (2-11) 07/22/17 05:29 BUN 19 mg/dL (6-24) 07/22/17 05:29 Creatinine 0.34 mg/dL (0.51-0.95) L 07/22/17 05:29 Est GFR ( Amer) 237.1 (>60) 07/22/17 05:29 Est GFR (Non-Af Amer) 184.3 (>60) 07/22/17 05:29 BUN/Creatinine Ratio 55.9 (8-20) H 07/22/17 05:29 Glucose 84 mg/dL (70-100) 07/22/17 05:29 Lactic Acid 0.9 mmol/L (0.5-2.0) 07/15/17 20:00 Calcium 7.8 mg/dL (8.6-10.3) L 07/22/17 05:29 Magnesium 1.6 mg/dL (1.9-2.7) L 07/19/17 11:32 Total Bilirubin 0.70 mg/dL (0.2-1.0) 07/15/17 20:00 AST 18 U/L (13-39) 07/15/17 20:00 ALT 16 U/L (7-52) 07/15/17 20:00 Alkaline Phosphatase 93 U/L (34-104) 07/15/17 20:00 Total Protein 6.1 g/dL (6.4-8.9) L 07/15/17 20:00 Albumin 3.5 g/dL (3.2-5.2) 07/15/17 20:00 Globulin 2.6 g/dL (2-4) 07/15/17 20:00 Albumin/Globulin Ratio 1.3 (1-3) 07/15/17 20:00 Urine Color Straw 07/19/17 20:56 Urine Appearance Clear 07/19/17 20:56 Urine pH 6.0 (5-9) 07/19/17 20:56 Ur Specific [place] 1.004 (1.010-1.030) L 07/19/17 20:56 Urine Protein Negative (Negative) 07/19/17 20:56 Urine Ketones Negative (Negative) 07/19/17 20:56 Urine Blood 1+ (Negative) H 07/19/17 20:56 Urine Nitrate Negative (Negative) 07/19/17 20:56 Urine Bilirubin Negative (Negative) 07/19/17 20:56 Urine Urobilinogen Negative (Negative) 07/19/17 20:56 Ur Leukocyte Esterase Negative (Negative) 07/19/17 20:56 Urine WBC (Auto) Absent (Absent) 07/19/17 20:56 Urine RBC (Auto) Absent (Absent) 07/19/17 20:56 Ur Squamous Epith Cells Present (Absent) H 07/19/17 20:56 Urine Bacteria Absent (Absent) 07/19/17 20:56 Urine Glucose Negative (Negative) 07/19/17 20:56 Influenza A (Rapid) Negative (Negative) 07/19/17 16:10 Influenza B (Rapid) Negative (Negative) 07/19/17 16:10 Blood Type O Negative 07/19/17 11:29 Antibody Screen Negative 07/19/17 11:29 Crossmatch See Detail 07/19/17 11:29 Assessment: []POD#5 from R distal femur ORIF Plan: []Encourage patient to participate with PT/OT TTWB Waiting on bed at [place] Spoke with hospitalist Tanja regarding hypokalemia.
[2017-07-22] MEDS ORDERED: oxyCODONE TAB* 5 MG TAB PO PRN (13:48)
--- NOTE | 2017-07-22 15:13 | PN ---
Subjective Date of Service: 07/22/17 Interval History: c/o mild pain to right thigh and knee. Alert, oriented to self , denies chest pain, denies shortness of breath. Denies N/V/D l Family History: Unchanged from Admission Social History: Unchanged from Admission Past Medical History: Unchanged from Admission Objective Active Medications: Acetaminophen (Tylenol Tab*) 975 mg PO Q6H PRN PRN Reason: FEVER/PAIN Last Admin: 07/22/17 09:29 Dose: 975 mg Docusate Sodium (Colace Cap*) 200 mg PO BID [facility] Last Admin: 07/22/17 09:30 Dose: 200 mg Heparin Sodium (Porcine) (Heparin Vial(*)) 5,000 units SUBCUT Q8HR [facility] Last Admin: 07/22/17 14:30 Dose: 5,000 units Ceftriaxone Sodium 1 gm/ (Dextrose) 50 mls @ 200 mls/hr IVPB Q24H [facility] Last Admin: 07/22/17 11:50 Dose: 200 mls/hr Ondansetron HCl (Zofran Inj*) 4 mg IV Q6H PRN PRN Reason: NAUSEA Last Admin: 07/15/17 22:21 Dose: 4 mg Oxycodone HCl (Roxycodone Tab*) 2.5 mg PO Q6H PRN PRN Reason: PAIN Last Admin: 07/22/17 14:29 Dose: 2.5 mg Pantoprazole Sodium (Protonix Iv*) 40 mg IV DAILY [facility] Last Admin: 07/22/17 09:29 Dose: 40 mg Potassium Chloride (Klor Con Er Tab*) 40 meq PO ONCE ONE Stop: 07/23/17 09:01 Last Admin: 07/22/17 14:29 Dose: 40 meq Vital Signs - 8 hr 07/22/17 07/22/17 07/22/17 07:36 08:00 14:29 Pulse Rate 64 Respiratory 16 16 18 Rate Blood Pressure 132/57 (mmHg) O2 Sat by Pulse 94 94 Oximetry Oxygen Devices in Use Now: None Appearance: alert, pleasent, sitting in the chair, Eyes: No Scleral Icterus Ears/Nose/Mouth/Throat: Clear Oropharnyx, Mucous Membranes Moist Neck: NL Appearance and Movements; NL JVP, Trachea Midline Respiratory: Symmetrical Chest Expansion and Respiratory Effort, Clear to Auscultation Cardiovascular: NL Sounds; No Murmurs; No JVD, RRR, No Edema Abdominal: NL Sounds; No Tenderness; No Distention Extremities: No Clubbing, Cyanosis, - - ecchymotic area noted to right knee and thigh, dressing intact to right thigh. DP+2 bilaterally Skin: No Rash or Ulcers Neurological: - - oreinted to person, confused to place and time Nutrition: Taking PO's Result Diagrams: 07/22/17 05:29 07/22/17 05:29 Microbiology and Other Data: Microbiology 07/15/17 22:25 Urine Culture - Preliminary Urine Escherichia Coli Assess/Plan/Problems-Billing Assessment: This is 82 y.o female with an underlying history of dementia, a-fib, hypertension and anxiety that present to the emergency room after a fall. Patient c/o right leg pain. Spiral fracture to the right femur was confirmed s/ p orif right femur - Patient Problems (1) Femur fracture, right Current Visit: Yes Status: Acute Priority: High Code(s): S72.91XA - UNSP FRACTURE OF RIGHT FEMUR, INIT FOR CLOS FX SNOMED Code(s): 04301782 Comment: management per orthopedics PT/OT as per ortho POD5 mobilze PT today- was oob to chair today add low dose of oxycodone 2.5 mg q 6 hours as needed for pain management. (2) History of atrial fibrillation Current Visit: Yes Status: Acute Code(s): Z86.79 - PERSONAL HISTORY OF OTHER DISEASES OF THE CIRCULATORY SYSTEM SNOMED Code(s): 745730261 Comment: current in regular rhythum will place on telemetry post-op (3) UTI (urinary tract infection) Current Visit: No Status: Acute Comment: - low grade fever, no leukocytosis - Pt with history of recurrent UTIs - will place on ceftriaxone daily -urine culture positive for ecoli- S to ceftriaxone (4) HTN (hypertension) Current Visit: Yes Status: Acute Priority: High Code(s): I10 - ESSENTIAL ( PRIMARY) HYPERTENSION SNOMED Code(s): 73060504 Comment: Stable - not surrently taking medications at home monitor blood pressure (5) Anxiety Current Visit: Yes Status: Acute Priority: High Code(s): F41.9 - ANXIETY DISORDER, UNSPECIFIED SNOMED Code(s): 99854554 Comment: supportive care (6) Anemia Current Visit: Yes Status: Acute Priority: High Code(s): D64.9 - ANEMIA, UNSPECIFIED SNOMED Code(s): 079652508 Comment: HGB 10, stable will continue to trend. (7) Dementia Current Visit: Yes Status: Acute Priority: High Code(s): F03.90 - UNSPECIFIED DEMENTIA WITHOUT BEHAVIORAL DISTURBANCE SNOMED Code(s): 28188900 Comment: has overlying delirium from surgery concern today by ortho due to drowsiness, pt when stimulated agigated and knows name and place, suspect multifactorial delirium from anesthsia, haldol and post- op fever, continues to have have periods of agigation today. supportive care (8) DVT prophylaxis Current Visit: Yes Status: Acute Priority: High Code(s): LPT6746 - SNOMED Code(s): 131598992 Comment: Heparin 5000 units SCD's (9) DNR (do not resuscitate) Current Visit: Yes Status: Acute Priority: High Comment: will maintain MOLST completed (10) Hypomagnesemia Current Visit: Yes Status: Acute Code(s): E83.42 - HYPOMAGNESEMIA SNOMED Code(s): 674818155 Comment: Will repeat Magnesium level in the AM Status and Disposition: inpatient- will need rehab post surgery waiting for rehab placement
[2017-07-23] MEDS: Heparin VIAL(*) 5000 UNITS/ML VIAL (FIVE THOUSAND) SUBCUT SCH ×3 (05:33→20:58)
[2017-07-23] MEDS: Pantoprazole IV* 40 MG IV SCH (09:29)
[2017-07-23] MEDS: Potassium Chlor TAB* 10 MEQ TAB.ER PO ONE (09:30)
[2017-07-23] MEDS: Docusate CAP* 100 MG PO SCH ×2 (09:30→20:58)
[2017-07-23] MEDS: Acetaminophen TAB* 325 MG PO PRN ×2 (09:30→15:43)
[2017-07-23] MEDS ORDERED: Sertraline* 50 MG TAB PO ONE (11:46)
[2017-07-23] MEDS: cefTRIAXone(*) 1 GM in D5W 50 ML BAG* 50 ML IVPB SCH (12:11)
--- NOTE | 2017-07-23 12:42 | PN ---
Progress Note - Progress Note Date of Service: 07/23/17 SOAP: Subjective: []Patient seen OOB in chair. She was cooperative and talkative today. No CP, SOB , leg numbness. RLE remains painful. Objective: []General: OOB in chair, comfortable appearing. Calm and cooperative. Friends and with her. RLE: Immobilizer in place. Dressing CDI, changed by nursing yesterday. DF/PF intact. 1+ DP pulse, sensation intact distally. Vital Signs Temp 98.1 F 07/23/17 07:09 Pulse 76 07/23/17 07:09 Resp 18 07/23/17 08:00 BP 113/47 07/23/17 07:09 Pulse Ox 97 07/23/17 08:00 Intake & Output 07/22/17 07/23/17 07/23/17 18:59 06:59 18:59 Intake Total 1158 370 10 Balance 1158 370 10 Intake: IV Fluids 58 ABX - CEFTRIAXONE 58 Oral 1100 370 10 Other: Estimated Void Large Large # Bowel Movements 0 # Voids 1 2 Laboratory Last Values WBC 5.8 10^3/ul (3.5-10.8) 07/22/17 05:29 RBC 3.17 10^6/ul (4.0-5.4) L 07/22/17 05:29 Hgb 9.8 g/dl (12.0-16.0) L 07/22/17 05:29 Hct 29 % (35-47) L 07/22/17 05:29 MCV 90 fL (80-97) 07/22/17 05:29 MCH 31 pg (27-31) 07/22/17 05:29 MCHC 34 g/dl (31-36) 07/22/17 05:29 RDW 14 % (10.5-15) 07/22/17 05:29 Plt Count 241 10^3/ul (150-450) 07/22/17 05:29 MPV 7 um3 (7.4-10.4) L 07/22/17 05:29 Neut % (Auto) 68.3 % (38-83) 07/22/17 05:29 Lymph % (Auto) 15.0 % (25-47) L 07/22/17 05:29 [place] % (Auto) 11.6 % (1-9) H 07/22/17 05:29 Eos % (Auto) 4.2 % (0-6) 07/22/17 05:29 Baso % (Auto) 0.9 % (0-2) 07/22/17 05:29 Absolute Neuts (auto) 3.9 10^3/ul (1.5-7.7) 07/22/17 05:29 Absolute Lymphs (auto) 0.9 10^3/ul (1.0-4.8) L 07/22/17 05:29 Absolute Monos (auto) 0.7 10^3/ul (0-0.8) 07/22/17 05:29 Absolute Eos (auto) 0.2 10^3/ul (0-0.6) 07/22/17 05:29 Absolute Basos (auto) 0.1 10^3/ul (0-0.2) 07/22/17 05:29 Absolute Nucleated RBC 0 10^3/ul 07/22/17 05:29 Nucleated RBC % 0.1 07/22/17 05:29 INR (Anticoag Therapy) 0.95 (0.77-1.02) 07/15/17 20:00 APTT 27.9 seconds (26.0-36.3) 07/15/17 20:00 Sodium 139 mmol/L (133-145) 07/22/17 05:29 Potassium 3.0 mmol/L (3.5-5.0) L 07/22/17 05:29 Chloride 106 mmol/L (101-111) 07/22/17 05:29 Carbon Dioxide 27 mmol/L (22-32) 07/22/17 05:29 Anion Gap 6 mmol/L (2-11) 07/22/17 05:29 BUN 19 mg/dL (6-24) 07/22/17 05:29 Creatinine 0.34 mg/dL (0.51-0.95) L 07/22/17 05:29 Est GFR ( Amer) 237.1 (>60) 07/22/17 05:29 Est GFR (Non-Af Amer) 184.3 (>60) 07/22/17 05:29 BUN/Creatinine Ratio 55.9 (8-20) H 07/22/17 05:29 Glucose 84 mg/dL (70-100) 07/22/17 05:29 Lactic Acid 0.9 mmol/L (0.5-2.0) 07/15/17 20:00 Calcium 7.8 mg/dL (8.6-10.3) L 07/22/17 05:29 Magnesium 1.6 mg/dL (1.9-2.7) L 07/19/17 11:32 Total Bilirubin 0.70 mg/dL (0.2-1.0) 07/15/17 20:00 AST 18 U/L (13-39) 07/15/17 20:00 ALT 16 U/L (7-52) 07/15/17 20:00 Alkaline Phosphatase 93 U/L (34-104) 07/15/17 20:00 Total Protein 6.1 g/dL (6.4-8.9) L 07/15/17 20:00 Albumin 3.5 g/dL (3.2-5.2) 07/15/17 20:00 Globulin 2.6 g/dL (2-4) 07/15/17 20:00 Albumin/Globulin Ratio 1.3 (1-3) 07/15/17 20:00 Urine Color Straw 07/19/17 20:56 Urine Appearance Clear 07/19/17 20:56 Urine pH 6.0 (5-9) 07/19/17 20:56 Ur Specific [place] 1.004 (1.010-1.030) L 07/19/17 20:56 Urine Protein Negative (Negative) 07/19/17 20:56 Urine Ketones Negative (Negative) 07/19/17 20:56 Urine Blood 1+ (Negative) H 07/19/17 20:56 Urine Nitrate Negative (Negative) 07/19/17 20:56 Urine Bilirubin Negative (Negative) 07/19/17 20:56 Urine Urobilinogen Negative (Negative) 07/19/17 20:56 Ur Leukocyte Esterase Negative (Negative) 07/19/17 20:56 Urine WBC (Auto) Absent (Absent) 07/19/17 20:56 Urine RBC (Auto) Absent (Absent) 07/19/17 20:56 Ur Squamous Epith Cells Present (Absent) H 07/19/17 20:56 Urine Bacteria Absent (Absent) 07/19/17 20:56 Urine Glucose Negative (Negative) 07/19/17 20:56 Influenza A (Rapid) Negative (Negative) 07/19/17 16:10 Influenza B (Rapid) Negative (Negative) 07/19/17 16:10 Blood Type O Negative 07/19/17 11:29 Antibody Screen Negative 07/19/17 11:29 Crossmatch See Detail 07/19/17 11:29 Assessment: []POD#6 from R distal femur ORIF Plan: []Encourage patient to participate with PT/OT TTWB Waiting on bed at [facility] today if available
[2017-07-23 14:29] LABS: EGFR Non-African American 136.9 (>60)
[2017-07-23] MEDS: Polyethylene Glycol 3350* 17 GM PACKET PO SCH (15:43)
--- NOTE | 2017-07-23 23:18 | PN ---
Subjective Date of Service: 07/23/17 Interval History: C/o mild pain to right leg. Denies chest pain, shortness of breath, or abd pain. Denies nausea,vomiting or diarrhea. pleasant Family History: Unchanged from Admission Social History: Unchanged from Admission Past Medical History: Unchanged from Admission Objective Active Medications: Acetaminophen (Tylenol Tab*) 975 mg PO Q6H PRN PRN Reason: FEVER/PAIN Last Admin: 07/23/17 15:43 Dose: 975 mg Docusate Sodium (Colace Cap*) 200 mg PO BID [facility] Last Admin: 07/23/17 20:58 Dose: 200 mg Heparin Sodium (Porcine) (Heparin Vial(*)) 5,000 units SUBCUT Q8HR [facility] Last Admin: 07/23/17 20:58 Dose: 5,000 units Ceftriaxone Sodium 1 gm/ (Dextrose) 50 mls @ 200 mls/hr IVPB Q24H [facility] Stop: 07/24/17 14:00 Last Admin: 07/23/17 12:11 Dose: 200 mls/hr Ondansetron HCl (Zofran Inj*) 4 mg IV Q6H PRN PRN Reason: NAUSEA Last Admin: 07/15/17 22:21 Dose: 4 mg Oxycodone HCl (Roxycodone Tab*) 2.5 mg PO Q6H PRN PRN Reason: PAIN Last Admin: 07/22/17 14:29 Dose: 2.5 mg Pantoprazole Sodium (Protonix Iv*) 40 mg IV DAILY [facility] Last Admin: 07/23/17 09:29 Dose: 40 mg Polyethylene Glycol/Electrolytes (Miralax*) 17 gm PO DAILY [facility] Last Admin: 07/23/17 15:43 Dose: 17 gm Sertraline HCl (Zoloft*) 150 mg PO DAILY [facility] Vital Signs - 8 hr 07/23/17 07/23/17 16:00 16:09 Temperature 97.9 F Pulse Rate 74 Respiratory 18 Rate Blood Pressure 124/60 (mmHg) O2 Sat by Pulse 98 99 Oximetry Oxygen Devices in Use Now: None Eyes: No Scleral Icterus, PERRLA Ears/Nose/Mouth/Throat: Clear Oropharnyx, Mucous Membranes Moist Neck: NL Appearance and Movements; NL JVP, Trachea Midline Respiratory: Symmetrical Chest Expansion and Respiratory Effort Cardiovascular: NL Sounds; No Murmurs; No JVD, RRR, No Edema Abdominal: NL Sounds; No Tenderness; No Distention Extremities: No Clubbing, Cyanosis, - - ecchymotic area noted to right thigh and knee, dressing intact to right thigh Skin: No Rash or Ulcers Neurological: - - confused to place and time, Result Diagrams: 07/22/17 05:29 07/23/17 14:01 Microbiology and Other Data: Microbiology 07/15/17 22:25 Urine Culture - Preliminary Urine Escherichia Coli Assess/Plan/Problems-Billing Assessment: This is 82 y.o female with an underlying history of dementia, a-fib, hypertension and anxiety that present to the emergency room after a fall. Patient c/o right leg pain. Spiral fracture to the right femur was confirmed s/ p orif right femur, waiting for rehab bed , possible discharg tomorrow. - Patient Problems (1) Femur fracture, right Current Visit: Yes Status: Acute Priority: High Code(s): S72.91XA - UNSP FRACTURE OF RIGHT FEMUR, INIT FOR CLOS FX SNOMED Code(s): 40776514 Comment: management per orthopedics PT/OT as per ortho POD6 mobilze PT today- was oob to chair today Discharge in the AM to rehab add low dose of oxycodone 2.5 mg q 6 hours as needed for pain management. (2) History of atrial fibrillation Current Visit: Yes Status: Acute Code(s): Z86.79 - PERSONAL HISTORY OF OTHER DISEASES OF THE CIRCULATORY SYSTEM SNOMED Code(s): 445339090 Comment: current in regular rhythum will place on telemetry post-op (3) UTI (urinary tract infection) Current Visit: No Status: Acute Comment: - low grade fever, no leukocytosis - Pt with history of recurrent UTIs - will place on ceftriaxone daily -urine culture positive for ecoli- S to ceftriaxone (4) HTN (hypertension) Current Visit: Yes Status: Acute Priority: High Code(s): I10 - ESSENTIAL ( PRIMARY) HYPERTENSION SNOMED Code(s): 35434181 Comment: Stable - not surrently taking medications at home monitor blood pressure (5) Anxiety Current Visit: Yes Status: Acute Priority: High Code(s): F41.9 - ANXIETY DISORDER, UNSPECIFIED SNOMED Code(s): 60485569 Comment: supportive care (6) Anemia Current Visit: Yes Status: Acute Priority: High Code(s): D64.9 - ANEMIA, UNSPECIFIED SNOMED Code(s): 310472857 Comment: HGB 10, stable will continue to trend. (7) Dementia Current Visit: Yes Status: Acute Priority: High Code(s): F03.90 - UNSPECIFIED DEMENTIA WITHOUT BEHAVIORAL DISTURBANCE SNOMED Code(s): 19760430 Comment: has overlying delirium from surgery concern today by ortho due to drowsiness, pt when stimulated agigated and knows name and place, suspect multifactorial delirium from anesthsia, haldol and post- op fever, continues to have have periods of agigation today. Zoloft 150 mg restarted supportive care (8) DVT prophylaxis Current Visit: Yes Status: Acute Priority: High Code(s): NEH8002 - SNOMED Code(s): 375350718 Comment: Heparin 5000 units SCD's (9) DNR (do not resuscitate) Current Visit: Yes Status: Acute Priority: High Comment: will maintain MOLST completed (10) Hypomagnesemia Current Visit: Yes Status: Acute Code(s): E83.42 - HYPOMAGNESEMIA SNOMED Code(s): 507282212 Comment: Status and Disposition: inpatient- will need rehab post surgery waiting for rehab placement; discharge in the AM to rehab in [place]
[2017-07-24] MEDS: Heparin VIAL(*) 5000 UNITS/ML VIAL (FIVE THOUSAND) SUBCUT SCH ×2 (05:22→14:31)
[2017-07-24 07:44] VITALS: BP 130/68
[2017-07-24] MEDS: Polyethylene Glycol 3350* 17 GM PACKET PO SCH (08:50)
[2017-07-24] MEDS: Pantoprazole IV* 40 MG IV SCH (08:50)
[2017-07-24] MEDS: Docusate CAP* 100 MG PO SCH (08:50)
[2017-07-24] MEDS ORDERED: Sertraline* 50 MG TAB PO SCH (09:00)
[2017-07-24] MEDS ORDERED: Magnesium Oxide TAB* 400 MG PO ONE (11:16)
[2017-07-24] MEDS: cefTRIAXone(*) 1 GM in D5W 50 ML BAG* 50 ML IVPB SCH (11:42)
--- NOTE | 2017-07-24 12:07 | PN ---
Subjective Date of Service: 07/24/17 Interval History: C/o mild pain to right leg. Denies shortness of breath, chest pain or abd pain. Denies N/V/D Family History: Unchanged from Admission Social History: Unchanged from Admission Past Medical History: Unchanged from Admission Objective Active Medications: Acetaminophen (Tylenol Tab*) 975 mg PO Q6H PRN PRN Reason: FEVER/PAIN Last Admin: 07/23/17 15:43 Dose: 975 mg Docusate Sodium (Colace Cap*) 200 mg PO BID [facility] Last Admin: 07/24/17 08:50 Dose: 200 mg Heparin Sodium (Porcine) (Heparin Vial(*)) 5,000 units SUBCUT Q8HR [facility] Last Admin: 07/24/17 05:22 Dose: 5,000 units Ceftriaxone Sodium 1 gm/ (Dextrose) 50 mls @ 200 mls/hr IVPB Q24H [facility] Stop: 07/24/17 14:00 Last Admin: 07/24/17 11:42 Dose: 200 mls/hr Ondansetron HCl (Zofran Inj*) 4 mg IV Q6H PRN PRN Reason: NAUSEA Last Admin: 07/15/17 22:21 Dose: 4 mg Oxycodone HCl (Roxycodone Tab*) 2.5 mg PO Q6H PRN PRN Reason: PAIN Last Admin: 07/22/17 14:29 Dose: 2.5 mg Pantoprazole Sodium (Protonix Iv*) 40 mg IV DAILY [facility] Last Admin: 07/24/17 08:50 Dose: 40 mg Polyethylene Glycol/Electrolytes (Miralax*) 17 gm PO DAILY [facility] Last Admin: 07/24/17 08:50 Dose: 17 gm Sertraline HCl (Zoloft*) 150 mg PO DAILY [facility] Last Admin: 07/24/17 08:50 Dose: 150 mg Vital Signs - 8 hr 07/24/17 07/24/17 07:37 08:00 Temperature 97.9 F Pulse Rate 82 Respiratory 15 18 Rate Blood Pressure 130/68 (mmHg) O2 Sat by Pulse 99 93 Oximetry Oxygen Devices in Use Now: None Appearance: alert, oriented to place and person. appears comfortable Eyes: No Scleral Icterus Ears/Nose/Mouth/Throat: Clear Oropharnyx, Mucous Membranes Moist Neck: NL Appearance and Movements; NL JVP, Trachea Midline Respiratory: Symmetrical Chest Expansion and Respiratory Effort, Clear to Auscultation Cardiovascular: NL Sounds; No Murmurs; No JVD Abdominal: NL Sounds; No Tenderness; No Distention Extremities: No Edema, No Clubbing, Cyanosis Skin: No Rash or Ulcers Neurological: - - confused to time, does have periods of confusion to place and time Nutrition: Taking PO's Result Diagrams: 07/22/17 05:29 07/23/17 14:01 Microbiology and Other Data: Microbiology 07/15/17 22:25 Urine Culture - Preliminary Urine Escherichia Coli Assess/Plan/Problems-Billing Assessment: This is 82 y.o female with an underlying history of dementia, a-fib, hypertension and anxiety that present to the emergency room after a fall. Patient c/o right leg pain. Spiral fracture to the right femur was confirmed s/ p orif right femur, waiting for rehab bed , possible discharg tomorrow. - Patient Problems (1) Femur fracture, right Current Visit: Yes Status: Acute Priority: High Code(s): S72.91XA - UNSP FRACTURE OF RIGHT FEMUR, INIT FOR CLOS FX SNOMED Code(s): 45339977 Comment: management per orthopedics PT/OT as per ortho POD7 mobilze PT today- was oob to chair today Discharge to rehab add low dose of oxycodone 2.5 mg q 6 hours as needed for pain management. (2) History of atrial fibrillation Current Visit: Yes Status: Acute Code(s): Z86.79 - PERSONAL HISTORY OF OTHER DISEASES OF THE CIRCULATORY SYSTEM SNOMED Code(s): 791826974 Comment: current in regular rhythum will place on telemetry post-op ASA 81 mg (3) UTI (urinary tract infection) Current Visit: No Status: Acute Comment: - low grade fever, no leukocytosis - Pt with history of recurrent UTIs - will place on ceftriaxone daily -urine culture positive for ecoli- S to ceftriaxone (4) HTN (hypertension) Current Visit: Yes Status: Acute Priority: High Code(s): I10 - ESSENTIAL ( PRIMARY) HYPERTENSION SNOMED Code(s): 95403888 Comment: Stable - not surrently taking medications at home monitor blood pressure (5) Anxiety Current Visit: Yes Status: Acute Priority: High Code(s): F41.9 - ANXIETY DISORDER, UNSPECIFIED SNOMED Code(s): 75336552 Comment: supportive care Lorazepam as needed (6) Anemia Current Visit: Yes Status: Acute Priority: High Code(s): D64.9 - ANEMIA, UNSPECIFIED SNOMED Code(s): 967763351 Comment: HGB 9.8, stable (7) Dementia Current Visit: Yes Status: Acute Priority: High Code(s): F03.90 - UNSPECIFIED DEMENTIA WITHOUT BEHAVIORAL DISTURBANCE SNOMED Code(s): 10140578 Comment: has overlying delirium from surgery concern today by ortho due to drowsiness, pt when stimulated agigated and knows name and place, suspect multifactorial delirium from anesthsia, haldol and post- op fever, continues to have have periods of agigation today. Zoloft 150 mg restarted supportive care (8) DVT prophylaxis Current Visit: Yes Status: Acute Priority: High Code(s): XVH1369 - SNOMED Code(s): 189020168 Comment: Lovenox 30 mg SubQ daily for 5 weeks (9) DNR (do not resuscitate) Current Visit: Yes Status: Acute Priority: High Comment: will maintain MOLST completed (10) Hypomagnesemia Current Visit: Yes Status: Acute Code(s): E83.42 - HYPOMAGNESEMIA SNOMED Code(s): 639520003 Comment: magnesium 1.7 Magnesium OX 400 mg po given Status and Disposition: inpatient- will need rehab post surgery waiting for rehab placement; discharge in the AM to rehab in [place] Will continue lovonex Anticoagulants for 5 weeks (total of 6 weeks) Oxycodone 2.5 mg every 6 hours as needed for pain Tylenol 975 mg every 8 6 hours as needed for pain Keep wound clean and dry. wash with mild soap and water watch for sign of infection ,redness swelling or drainage Daily dressing changes, apply sterile dressing with gauze and tape. toe touch weight bearing to right leg leave right leg brace in place at all times PT evaluate and treat
--- NOTE | 2017-07-24 14:48 | DS ---
CC: Dr. Salgado; Dr. Parul Peter* DISCHARGE SUMMARY: DATE OF ADMISSION: 07/16/17 DATE OF DISCHARGE: 07/24/17 PRIMARY CARE PROVIDER: Dr. Parul Peter ATTENDING PHYSICIAN WHILE IN THE HOSPITAL: Dr. Ivette Billy* (this is dictated by Tanja Basilio NP). PRIMARY DIAGNOSES: 1. Right femur fracture with open reduction internal fixation repair. 2. Urinary tract infection. SECONDARY DIAGNOSES: 1. Severe dementia. 2. Hypertension. 3. Anxiety. 4. Frequent urinary tract infections. STUDIES: Exams completed while in the hospital: 1. She had a hip and pelvis x-ray on 07/15/17. Radiologist's impression: Distal to the femoral stump component of the right hip prosthesis, there is a displaced spiral fracture of the femur. 2. She had an chest x-ray on 07/15/17. Chest x-ray radiologist's impression: No evidence for significant intrathoracic disease. 3. She had an electrocardiogram done on 07/15/17. It showed a rate of 88, sinus rhythm. 4. On 07/17/17, she had OR films confirming repair of the right femur. 5. On 07/19/17, she had a repeat chest x-ray. Radiologist's impression was trace bilateral pleural effusions. PROCEDURES DONE WHILE IN THE HOSPITAL: She had an ORIF of the right femur completed by Dr. Salgado on 07/17/17. She had routine lab work. She did have some anemia while in the hospital. She did receive blood transfusions during her stay. Her H and H at the lowest was 6.2 and 18. Her last H and H on 07/22/17 was 9.8 and 29. Her potassium level on 07/23/17 was 4.0. Her magnesium was 1.7. She did get mag oxide 400 mg p.o. x1 for her magnesium. DISCHARGE MEDICATIONS: She will be discharged home on Lovenox 30 mg subcu daily x5 weeks. She can also continue Tylenol 975 q.6 hours as needed for pain. She also has oxycodone 2.5 mg p.o. q.6 hours as needed for moderate to severe pain. She should continue Colace 200 mg p.o. twice daily. Continued home medications: 1. Sertraline 150 mg p.o. daily. 2. Aspirin 81 mg p.o. daily. 3. Lorazepam 0.5 mg p.o. q.8 hours as needed for anxiety. HISTORY OF PRESENT ILLNESS AND HOSPITAL COURSE: Ms. Sloan is an 82-year-old female who presented to the emergency room after a fall at home. She carries a history of dementia, hypertension, anxiety and frequent UTIs. She was at home with her when her heard her cry out and found her lying on the floor in the kitchen. She had no loss of consciousness. She did complain of severe right thigh pain and she was brought to the hospital by EMS. Ms. Sloan is pleasantly confused at times. She is alert to self and place at times and then at times was confused to place and time. In the emergency room, she had x-ray of her hip and pelvis and her right femur, which showed a right spiral fracture of the femur. She had routine lab work drawn and was an acceptable candidate for the OR, so she went. During her hospital stay, she had an ORIF of the right femur by Dr. Salgado. She has gwendolyn to the right thigh that needed to be removed 14 days post surgery. She should have them removed on 07/31/17. She was anemic during her stay. She did receive a blood transfusion during her stay. Her H and H was 6.2 and 18 and she did increase to 9.8 and 29 on her last H and H. She has received pain control during her hospitalization. She has been placed on Tylenol 975 and oxycodone 2.5 mg every 6 hours as needed for pain. She was treated for UTI. The culture was positive for Klebsiella pneumoniae. She received 7 days of ceftriaxone IV 1 g. Her treatment has been completed. Her last dose of ceftriaxone was given on 07/24/17. She also was hypokalemic during her stay. She did receive several runs of potassium and also oral dose of potassium. Her last potassium level on 07/23/17 was 4.0. She also had low magnesium level. Her level was 1.6. On 07/18/17, she received 2 g of magnesium x2 and her repeat level on 07/23/17 was 1.7. I did give her magnesium oxide 400 mg p.o. x1 today. Ms. Sloan is stable for discharge to [facility] today. Her vital signs are as follows. Temp was 97.9, pulse was 82, respirations are 15, O2 sat was 99 % on room air, blood pressure 130/68. DISCHARGE PLAN: Ms. Sloan will be discharged to [facility]. She is toe- touch weightbearing to the right leg only. She does have an iron brace that has to remain in place to the right leg. She does have some ecchymosis noted to the right lateral hip, thigh and knee. There is a dressing that is dry and intact in the lateral aspect of the right thigh. Dressing changes need to be done daily with sterile dry gauze and tape dressing applied. [place] need to be removed in 7 days on 07/31/17. She does need to follow up with Dr. Salgado on 07/31/17 also. The wound needs to be watched for signs of infection. Any redness, drainage or fevers should be reported to Dr. Salgado. She is to follow up with her primary care provider in 4 to 7 days. She will be placed on Lovenox 30 mg subcu daily x5 more weeks. She should continue physical therapy during her rehab. Again, the gwendolyn should be removed in 7 days and that is on 07/31/17. This is a summary of a report of a complex medical history and hospital stay. For further details, please see the entire medical records. TIME SPENT: Time spent on this discharge was approximately 60 minutes and approximately 25 minutes was spent [id number] with the family discussing discharge plans and instructions. CONDITION AT DISCHARGE: Stable. TANJA BASILIO NP [id number]/[facility] #: [id number] [place]
== END 2017-07-24 14:45 | DRG 481 ==
LOC: ED 18:38 → MED 21:34
PROVIDERS: ADMIT Hospitalist; ATTEND Nurse Practitioner
PROC: 30233N1 Transfusion of Nonautologous Red Blood Cells into Peripheral Vein, Percutaneous Approach (ICD-10-PCS; 2017-07-16)
PROC: 0QSB04Z Reposition Right Lower Femur with Internal Fixation Device, Open Approach (ICD-10-PCS; principal; 2017-07-16 15:30)
DX: S72.401A Unspecified fracture of lower end of right femur, initial encounter for closed fracture (principal); M97.01XA Periprosthetic fracture around internal prosthetic right hip joint, initial encounter; J90 Pleural effusion, not elsewhere classified; B96.1 Klebsiella pneumoniae [K. pneumoniae] as the cause of diseases classified elsewhere; I48.91 Unspecified atrial fibrillation; E83.42 Hypomagnesemia; N39.0 Urinary tract infection, site not specified; D62 Acute posthemorrhagic anemia; F03.90 Unspecified dementia, unspecified severity, without behavioral disturbance, psychotic disturbance, mood disturbance, and anxiety; Z96.641 Presence of right artificial hip joint; M17.0 Bilateral primary osteoarthritis of knee; R40.2362 Coma scale, best motor response, obeys commands, at arrival to emergency department; R40.2142 Coma scale, eyes open, spontaneous, at arrival to emergency department; R40.2252 Coma scale, best verbal response, oriented, at arrival to emergency department; E87.6 Hypokalemia; Y79.2 Prosthetic and other implants, materials and accessory orthopedic devices associated with adverse incidents; I77.819 Aortic ectasia, unspecified site; I37.1 Nonrheumatic pulmonary valve insufficiency; Z66 Do not resuscitate; W01.0XXA Fall on same level from slipping, tripping and stumbling without subsequent striking against object, initial encounter; R50.82 Postprocedural fever; B96.20 Unspecified Escherichia coli [E. coli] as the cause of diseases classified elsewhere; F41.9 Anxiety disorder, unspecified; I10 Essential (primary) hypertension; Z88.1 Allergy status to other antibiotic agents; Z88.0 Allergy status to penicillin; Z88.2 Allergy status to sulfonamides; Z88.8 Allergy status to other drugs, medicaments and biological substances; Z86.19 Personal history of other infectious and parasitic diseases; Z87.442 Personal history of urinary calculi; Z90.710 Acquired absence of both cervix and uterus; Z90.49 Acquired absence of other specified parts of digestive tract; Z98.41 Cataract extraction status, right eye; Z82.49 Family history of ischemic heart disease and other diseases of the circulatory system; Y92.009 Unspecified place in unspecified non-institutional (private) residence as the place of occurrence of the external cause; Z79.82 Long term (current) use of aspirin
CPT/HCPCS: 36415; 70450; 71045; 76001; 80048; 80053; 81003; 81015; 83605; 83735; 85014; 85018; 85025; 85027; 85610; 85730; 86850; 86900; 86901; 86922; 87040; 87077; 87086; 87186; 87502; 93005; 94668; A9270-GY; J0696; J1630; J1644; J1940; J2250; J2405; J3010; J3475; J3480; P9016; P9040